=== PATIENT | female | born 2000 | race Caucasian/White ===

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

== ENCOUNTER 2020-05-06 00:43 | Emergency (ER) | payer OTHER, SELFPAY ==
[2020-05-06 00:49] VITALS: BP 152/96; PULSE 100; RESP 16; TEMP 36.6; O2SAT 95; BMI 28.3
--- NOTE | 2020-05-06 01:51 | ED_ITS ---
HPI - General Adult General Chief complaint: General Medical Stated complaint: sore throat Time Seen by Provider: 05/06/20 01:51 Source: patient Mode of arrival: ambulatory History of Present Illness HPI narrative: This is a 20-year-old female who states that she felt like her tonsils were enlarged and became concerned that they were going to close off her airway and so came into the emergency department. She denies any fevers, chills, nausea, vomiting, sore throat, or sick contacts. She denies eating or being exposed to anything that may have caused an allergic reaction. In addition, she denies any ear pain. Related Data Allergies Allergy/AdvReac Type Severity Reaction Status Date / Time No Known Allergies Allergy Verified 05/06/20 00:48 [No Known Allergies*] Review of Systems Review of Systems: Pertinent positives and negatives as stated in HPI 10 point review of systems is otherwise negative. PMFSH Past Medical History Source: nursing notes reviewed Medical History Tourettes disease Social History Social History Advance Directives: No Physical Exam Vital Signs: Vital Signs: Last Vital Signs Temp 97.9 F 05/06/20 00:49 Pulse 100 05/06/20 00:49 Resp 16 05/06/20 00:49 BP 152/96 H 05/06/20 00:49 Pulse Ox 95 05/06/20 00:49 Body Mass Index 28.3 VITAL SIGNS: Reviewed. GENERAL: Well developed, well nourished, in no acute distress. HEAD: Normocephalic/atraumatic EYES: PERRLA, EOMI EARS: Ext canals without abnormality, TMs non-bulging and non-erythematous NOSE: Nares patent bilateral OROPHARYNX: no oral lesions noted, posterior pharynx clear with noted tonsillar enlargement/erythema but no exudates NECK: Supple, no adenopathy LUNGS: Normal breath sounds. No adventitious sounds or accessory muscle use. SpO2<95> CARDIOVASCULAR: Regular rate and rhythm without noted murmurs ABDOMEN: Soft, non-tender, non-distended with bowel sounds. NEUROLOGIC: Alert and oriented x 4. Course Course Course Narrative: This is a 20-year-old female with history and clinical pre sentation consistent with viral pharyngitis as opposed to strep pharyngitis which was further corroborated by a negative rapid strep. 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 She was strongly encouraged to follow-up with her primary care provider on Thursday who could access the results of the strep culture as well as the Monospot testing. Discharge Plan Discharge Clinical Impression: Enlarged tonsils Patient Disposition: Home, Self-Care Instructions: Tonsillitis (ED) Additional Instructions: Please follow-up with your primary care provider on Thursday to pursue the results of your strep culture as well as Monospot. Referrals: Physician,Unknown [Primary Care Provider] - 2 days
[2020-05-06 03:18] LABS: Monotest Negative (Negative)
== END 2020-05-06 03:03 | disposition home or self-care (01) ==
PROVIDERS: Emergency Provider Student in an Organized Health Care Education/Training Program
DX: J35.1 Hypertrophy of tonsils (principal); J02.9 Acute pharyngitis, unspecified
CPT/HCPCS: 36415; 86308; 87071; 87147; 87880; 99283; 99284

== ENCOUNTER 2020-12-26 13:19 | Emergency (ER) | payer OTHER, SELFPAY ==
[2020-12-26 13:25] VITALS: BP 140/74; PULSE 88; RESP 18; TEMP 36.5; O2SAT 100; BMI 28.3
--- NOTE | 2020-12-26 13:57 | ECG_ITS ---
Test Reason : PALPITATIONS Blood Pressure : / mmHG Vent. Rate : 082 BPM Atrial Rate : 082 BPM P-R Int : 138 ms QRS Dur : 090 ms QT Int : 374 ms P-R-T Axes : 026 068 036 degrees QTc Int : 436 ms Normal sinus rhythm Nonspecific T wave abnormality Inferior leads Abnormal ECG When compared with ECG of 05-MAY-2019 17:24, Nonspecific T wave abnormality Inferior leads is new Referred By: Simeon Mcconnell Electronically Signed By:JONAH DURBIN MD
--- NOTE | 2020-12-26 14:01 | ED.ARRPALP ---
HPI - Arrhythmia/Palpitations General Chief Complaint: Arrhythmia/Palpitations Stated Complaint: heart palpitations Time Seen by Provider: 12/26/20 13:41 Source: patient and family (Father) Mode of arrival: ambulatory Limitations: no limitations History of Present Illness HPI narrative: 21-year-old female who presents emergency department for evaluation of palpitations. Patient states that approximately 2 weeks prior she got a Nexplanon implant. She states that the next thing she developed palpitations. She describes the palpitations as a pounding sensation in her heart beating fast. She states that the symptoms were intermittent and would last minutes. She went to [facility] and states that she had heart rate of 197. The patient was admitted to the hospital for 1 day and she states they were concerned that she may have a thyroid issue causing her palpitations. The patient was started on propanolol 20 mg 3 times a day. She states she has been taking these medications but believes that she still is experiencing palpitations. The patient lives in [place] but was visiting her grandmother here in the [place] area. She states that she had 2 episodes of palpitations lasting less than a minute. She states that she had a slight change in her vision, felt dizzy and short of breath with these palpitations. She states that at the time evaluation she has no symptoms. The patient did have the Nexplanon implant removed today. Related Data Home Medications Medication Instructions Recorded Confirmed amoxicillin 875 mg tablet 875 mg PO BID 09/20/20 cetirizine 10 mg tablet 10 mg PO DAILY 09/20/20 clonazepam 0.5 mg tablet mg PO 09/20/20 clonidine HCl 0.1 mg tablet 0.1 mg PO TID 09/20/20 fluoride (sodium) 1.1 % dental gel PO 09/20/20 (SF) haloperidol 2 mg tablet 2 mg PO BID 09/20/20 ibuprofen 600 mg tablet 600 mg PO Q6H PRN 09/20/20 medroxyprogesterone 150 mg/mL 150 mg IM [id number] 09/20/20 intramuscular suspension methylprednisolone 4 mg tablets in mg PO 09/20/20 a dose pack metronidazole 500 mg tablet 500 mg PO BID 09/20/20 sertraline 100 mg tablet 100 mg PO DAILY 09/20/20 sertraline 25 mg tablet 25 mg PO DAILY 09/20/20 sertraline 50 mg tablet 50 mg PO DAILY 09/20/20 Allergies Allergy/AdvReac Type Severity Reaction Status Date / Time metronidazole Allergy Palpitation Verified 12/26/20 13:25 s Review of Systems Review of Systems: Yes all other systems are reviewed and are negative [facility] Past Medical History [facility] Narrative: Past medical history: Tourette's. Past surgical history tonsillectomy August 2020. Social history: She denies tobacco, alcohol and drug use. Medical History Tourettes disease Social History Social History Alcohol intake: never Advance Directives: No Advance Directives Information Provided: No Patient : No Physical Exam Vital Signs: Vital Signs: Last Vital Signs Temp 99.4 F 12/26/20 15:40 Pulse 74 12/26/20 15:40 Resp 16 12/26/20 15:40 BP 134/72 12/26/20 15:40 Pulse Ox 100 12/26/20 15:40 Body Mass Index 28.3 Const: General: cooperative and no acute distress Orientation/consciousness: oriented to person and oriented to place Limitations: no limitations HENMT: Head: Yes normal to inspection, Yes normocephalic and Yes atraumatic Ears: external ears normal General nose exam: Normal external nose present Face and sinus: Yes normal facial exam Mouth: Normal oral and palatal mucosa present Throat: Yes posterior oropharynx normal Eyes: General: appearance normal, both eyes and all related structures Pupils: Equal, round and reactive pupils present Neck: Neck: Yes normal visual inspection, Yes no lymphadenopathy, Yes trachea midline and Yes supple Chest: Chest palpation & inspection: normal inspection of the chest and normal palpation of entire chest wall Resp: Effort & Inspection: normal respiratory effort and able to speak in complete sentences Auscultation: clear to auscultation bilaterally Cardio: Rate: tachycardic Rhythm: regular rhythm Heart sounds: S1 normal heart sound present, S2 normal heart sound present and no murmurs GI: Inspection: Yes normal to inspection Palpation (GI): Soft to palpation, nontender and no guarding Auscultation: normal bowel sounds : General: Yes no CVA tenderness Back/Spine/Pelvis: Back: no CVA tenderness Skin: General skin exam: no rashes or lesions noted Neuro: General: oriented to person and oriented to place Cranial nerves: Yes CN's II-XII intact bilaterally and Yes Equal, round and reactive pupils present Cognition (Neuro): normal cognition Motor exam (neuro): 5/5 motor strength present throughout Extrem: Other: Right biceps wrapped with a gauze dressing, the patient just have her control Nexplanon implant removed. This dressing was not taken down. General: Yes normal to inspection Psych: Appearance: grossly normal Speech and movement: Normal speech and movement present Affect: normal affect Attitude: cooperative Thought process: Normal thought process present Thought content: Normal thought content present Course Course Course Narrative: 21-year-old female who has been experiencing intermittent palpitations over the last 1-2 weeks, recently hospitalized at [facility] for palpitations and told that she may have a thyroid problem. She was started on propanolol 20 mg 3 times a day states that she is continuing to have intermittent palpitations. Patient had to brief palpitation episodes lasting less than a minute each while she was visiting her grandmother today in the [place] area. At the time of my evaluation, the patient has no symptoms. Vital signs revealed a pulse of 88, blood pressure 140/74 , respiratory rate 18. Patient's exam did reveal tachycardia otherwise was unremarkable. I ordered a CBC, CMP, quantitative beta-hCG, troponin, TSH with reflex T4, gambling monitor. Patient was ordered to get normal saline 1 L IV. 1608: Patient's 12 EKG revealed a sinus rhythm rate of 82. Laboratory evaluation was unremarkable except for a nondetectable TSH of less than 0.01 The patient has free T4 which was normal at 183. The patient is taking propanolol 20 mg 3 times a day. The patient is asking if we have a mba intern, therefore I will refer the patient to Dr. Terry. I told the patient that Dr. Terry is not on-call for the emergency department but she may be able to see the patient as an outpatient. MDM - Arrhythmia/Palpitations Lab Data Result diagrams: 12/26/20 14:36 12/26/20 14:36 Labs: Lab Results 12/26/20 12/26/20 12/26/20 Range/Units 14:36 14:36 14:36 WBC 6.4 (4.8-10.8) X10*3/uL RBC 4.64 (4.20-5.50) X10*6/uL Hgb 13.1 (12.0-16.0) g/dl Hct 39.4 (37.0-47.0) % MCV 84.9 (80.0-98.0) fL MCH 28.2 (27.0-33.0) pg MCHC 33.2 (31.0-35.0) g/dl RDW 12.0 (11.0-16.0) % Plt Count 287 (160-400) X10*3/uL MPV 9.2 L (9.4-12.3) fL Immature Gran % (Auto) 0.3 (0.0-0.4) % Neut % (Auto) 55.2 (45-73) % Lymph % (Auto) 30.3 (20-40) % [place] % (Auto) 11.2 H (2-11) % Eos % (Auto) 2.5 (0-4) % Baso % (Auto) 0.5 (0-2) % Lymph # (Auto) 2.0 (1.2-4.9) X10*3/uL [place] # (Auto) 0.7 (0.1-1.2) X10*3/uL Eos # (Auto) 0.2 (0.0-0.4) X10*3/uL Baso # (Auto) 0.0 (0.0-0.2) X10*3/uL Abs Immat Gran (auto) 0.02 (0.00-0.03) X10*3/uL Absolute Neuts (auto) 3.6 (2.0-8.3) x10*3/uL Absolute Nucleated RBC 0.000 (0.0-0.012) X10*3/uL Nucleated RBC % (auto) 0.0 (0.0-0.2) /100WBC Sodium 139 (135-145) mmol/L Potassium 3.9 (3.3-5.1) mmol/L Chloride 108 (96-108) mmol/L Carbon Dioxide 24 (22-29) mmol/L Anion Gap 11 L (12-20) BUN 7 L (9-16) mg/dL Creatinine 0.66 (0.5-1.4) mg/dL Estim Creat Clear Calc 139.6 Estimated GFR > 60 Random Glucose 88 (60-115) mg/dL Calcium 9.3 (8.4-10.2) mg/dL Total Bilirubin 0.4 (0.0-1.0) mg/dL AST 16 (5-31) U/L ALT 26 (0-31) U/L Alkaline Phosphatase 77 (39-117) U/L Troponin I High Sens < 3.5 (<3.5-17.0) ng/L Total Protein 6.9 (6.5-8.0) g/dL Albumin 4.2 (3.5-5.0) g/dL TSH (0.32-4.0) uIU/mL Free T4 (0.71-1.85) ng/dL Beta HCG, Quant mIU/mL 12/26/20 12/26/20 Range/Units 14:36 14:36 WBC (4.8-10.8) X10*3/uL RBC (4.20-5.50) X10*6/uL Hgb (12.0-16.0) g/dl Hct (37.0-47.0) % MCV (80.0-98.0) fL MCH (27.0-33.0) pg MCHC (31.0-35.0) g/dl RDW (11.0-16.0) % Plt Count (160-400) X10*3/uL MPV (9.4-12.3) fL Immature Gran % (Auto) (0.0-0.4) % Neut % (Auto) (45-73) % Lymph % (Auto) (20-40) % [place] % (Auto) (2-11) % Eos % (Auto) (0-4) % Baso % (Auto) (0-2) % Lymph # (Auto) (1.2-4.9) X10*3/uL [place] # (Auto) (0.1-1.2) X10*3/uL Eos # (Auto) (0.0-0.4) X10*3/uL Baso # (Auto) (0.0-0.2) X10*3/uL Abs Immat Gran (auto) (0.00-0.03) X10*3/uL Absolute Neuts (auto) (2.0-8.3) x10*3/uL Absolute Nucleated RBC (0.0-0.012) X10*3/uL Nucleated RBC % (auto) (0.0-0.2) /100WBC Sodium (135-145) mmol/L Potassium (3.3-5.1) mmol/L Chloride (96-108) mmol/L Carbon Dioxide (22-29) mmol/L Anion Gap (12-20) BUN (9-16) mg/dL Creatinine (0.5-1.4) mg/dL Estim Creat Clear Calc Estimated GFR Random Glucose (60-115) mg/dL Calcium (8.4-10.2) mg/dL Total Bilirubin (0.0-1.0) mg/dL AST (5-31) U/L ALT (0-31) U/L Alkaline Phosphatase (39-117) U/L Troponin I High Sens (<3.5-17.0) ng/L Total Protein (6.5-8.0) g/dL Albumin (3.5-5.0) g/dL TSH < 0.01 L (0.32-4.0) uIU/mL Free T4 1.83 (0.71-1.85) ng/dL Beta HCG, Quant < 2 mIU/mL ECG Data Attestation: I personally reviewed and interpreted this ECG as follows: Interpretation: 1427: Normal sinus rhythm with a rate of 82, normal NC interval, QRS duration and QTC intervals, inverted T-wave in lead 3, no ST segment elevation no ST segment depression, poor R-wave progression V1 through V3 which may be secondary to lead placement. Discharge Plan Discharge Clinical Impression: Palpitations, Hyperthyroidism Patient Disposition: Home, Self-Care Instructions: Hyperthyroidism (ED) Additional Instructions: Your TSH (thyroid stimulating hormone) was less than 0.01 (ranges 0.32 to 4.0). This suggests that you have an overactive thyroid (hyperthyroidism). Your free T4 (thyroid hormone) was normal at 1.83 (range 0.7 to 1.85). Your symptoms are consistent with an overactive thyroid and this can sometimes be caused by your immune system attacking your thyroid and stimulating the thyroid. The treatment at this point is to continue taking propanolol 20 mg 3 times a day. You will need to see an mba intern to determine what further treatment and diagnostic tests that you may need for your hyperthyroidism. Keep your appointment with the [facility] mba intern. You can call our local mba intern, Dr. Terry to see if she can see you sooner. Follow-up with your doctor in 2 days. Please return to the emergency department if your symptoms get worse or if you develop any symptoms that are concerning to you. Prescriptions: No Action medroxyprogesterone 150 mg/mL suspension 150 mg IM [id number] RF: 0 metronidazole 500 mg tablet 500 mg PO BID RF: 0 sertraline 100 mg tablet 100 mg PO DAILY RF: 0 sertraline 50 mg tablet 50 mg PO DAILY RF: 0 haloperidol 2 mg tablet 2 mg PO BID RF: 0 methylprednisolone 4 mg tablets,dose pack PO RF: 0 sertraline 25 mg tablet 25 mg PO DAILY RF: 0 cetirizine 10 mg tablet 10 mg PO DAILY RF: 0 ibuprofen 600 mg tablet 600 mg PO Q6H PRN (Reason: pain) RF: 0 amoxicillin 875 mg tablet 875 mg PO BID RF: 0 clonazepam 0.5 mg tablet PO RF: 0 fluoride (sodium) [SF] 1.1 % gel PO RF: 0 clonidine HCl 0.1 mg tablet 0.1 mg PO TID RF: 0 Referrals: Shanna Pan DO [Physician] - 2 weeks
[2020-12-26 14:30] VITALS: BP 124/81; PULSE 82; RESP 20; O2SAT 100
[2020-12-26] MEDS: 0.9 % Sodium Chloride 1,000 ML 999 ML IV (14:40)
[2020-12-26 14:44] LABS: MANUAL DIFF FLAG NO
[2020-12-26 14:46] LABS: Basophils Percent Auto 0.5 % (0-2); Eosinophils Absolute Auto 0.2 X10*3/uL (0.0-0.4); Eosinophils Percent Auto 2.5 % (0-4); Hematocrit 39.4 % (37.0-47.0); Hemoglobin 13.1 g/dl (12.0-16.0); Imm Gran Abs Auto 0.02 X10*3/uL (0.00-0.03); Imm Gran Pct Auto 0.3 % (0.0-0.4); Lymphocytes Percent Auto 30.3 % (20-40); Mean Corpuscular HGB Conc 33.2 g/dl (31.0-35.0); Mean Corpuscular Hemoglobin 28.2 pg (27.0-33.0); Mean Corpuscular Volume 84.9 fL (80.0-98.0); Mean Platelet Volume 9.2 fL (9.4-12.3); Monocytes Absolute Auto 0.7 X10*3/uL (0.1-1.2); Monocytes Percent Auto 11.2 % (2-11); Neutrophils Absolute Auto 3.6 x10*3/uL (2.0-8.3); Neutrophils Percent Auto 55.2 % (45-73); Platelet Count 287 X10*3/uL (160-400); Red Blood Count 4.64 X10*6/uL (4.20-5.50); White Blood Count 6.4 X10*3/uL (4.8-10.8)
[2020-12-26 15:01] LABS: Alanine Aminotransferase 26 U/L (0-31); Albumin Level 4.2 g/dL (3.5-5.0); Alkaline Phosphatase 77 U/L (39-117); Anion Gap 11 (12-20); Aspartate Amino Transferase 16 U/L (5-31); Bilirubin Total 0.4 mg/dL (0.0-1.0); Blood Urea Nitrogen 7 mg/dL (9-16); Calcium 9.3 mg/dL (8.4-10.2); Carbon Dioxide 24 mmol/L (22-29); Chloride 108 mmol/L (96-108); Creatinine Clr Calc Pharmacy 139.6; Estimated Glomerular Filt Rate > 60; Glucose Random 88 mg/dL (60-115); Potassium 3.9 mmol/L (3.3-5.1); Sodium 139 mmol/L (135-145); Total Protein 6.9 g/dL (6.5-8.0)
[2020-12-26 15:05] LABS: Troponin-I High Sensitivity < 3.5 ng/L (<3.5-17.0)
[2020-12-26 15:08] LABS: HCG Quantitative < 2 mIU/mL
[2020-12-26 15:20] LABS: TSH reflex Free T4 < 0.01 uIU/mL (0.32-4.0)
[2020-12-26 15:40] VITALS: BP 134/72; PULSE 74; RESP 16; TEMP 37.4; O2SAT 100
[2020-12-26 15:57] LABS: Free T4 (Free Thyroxine) 1.83 ng/dL (0.71-1.85)
== END 2020-12-26 16:35 | disposition home or self-care (01) ==
PROVIDERS: Emergency Provider Emergency Medicine Emergency Medical Services; PCP Internal Medicine
DX: R00.2 Palpitations (principal); E05.90 Thyrotoxicosis, unspecified without thyrotoxic crisis or storm; Z79.899 Other long term (current) drug therapy
CPT/HCPCS: 36415; 80053; 84439; 84443; 84484; 84702; 85025; 93005; 96360; 99283; 99284

== ENCOUNTER 2024-03-21 18:52 | Emergency (ER) | payer BC, SELFPAY ==
--- NOTE | ~2024-03-21 | XR_ITS ---
CLINICAL HISTORY: pain 2 view chest x-ray Comparison: None Findings: No consolidation or effusion. Normal size heart. No acute fracture. IMPRESSION: 1. No acute findings. This document has been electronically signed by: Buddy Masterson MD on 03/21/2024 21:13:02
--- NOTE | 2024-03-21 19:34 | ED_ITS ---
HPI - General Adult General Chief complaint: Upper Respiratory Symptoms Stated complaint: sick x2wks; chest tight Time Seen by Provider: 03/22/24 01:56 Source: patient Mode of arrival: ambulatory Limitations: no limitations History of Present Illness ED Provider: HPI narrative: Patient otherwise healthy complaining of cough congestion for last 2 weeks especially in the nighttime with mucopurulent phlegm no fever no chills has a running nose patient has had labs done prior to my evaluation which showed negative COVID flu and RSV chest x-ray negative Related Data Home Medications ?Medication ?Instructions ?Recorded ?Confirmed amoxicillin 875 mg tablet 875 mg PO BID 09/20/20 cetirizine 10 mg tablet 10 mg PO DAILY 09/20/20 clonazepam 0.5 mg tablet mg PO 09/20/20 clonidine HCl 0.1 mg tablet 0.1 mg PO TID 09/20/20 fluoride (sodium) 1.1 % dental gel PO 09/20/20 (SF) haloperidol 2 mg tablet 2 mg PO BID 09/20/20 ibuprofen 600 mg tablet 600 mg PO Q6H PRN pain 09/20/20 medroxyprogesterone 150 mg/mL 150 mg IM [id number] 09/20/20 intramuscular suspension methylprednisolone 4 mg tablets in mg PO 09/20/20 a dose pack metronidazole 500 mg tablet 500 mg PO BID 09/20/20 sertraline 100 mg tablet 100 mg PO DAILY 09/20/20 sertraline 25 mg tablet 25 mg PO DAILY 09/20/20 sertraline 50 mg tablet 50 mg PO DAILY 09/20/20 Previous Rx's ?Medication ?Instructions ?Recorded azithromycin 250 mg tablet 250 mg PO DAILY 4 days #4 tabs 03/22/24 (Zithromax) benzonatate 200 mg capsule 200 mg PO TID PRN cough #30 caps 03/22/24 doxycycline hyclate 100 mg tablet 100 mg PO BID #20 tabs 03/22/24 Allergies Allergy/AdvReac Type Severity Reaction Status Date / Time metronidazole Allergy Palpitation Verified 03/21/24 19:38 s Review of Systems 2 Review of Systems: Yes all other systems are reviewed and are negative PMFSH Past Medical History Medical History Tourettes disease Social History Social History Alcohol intake: never Advance Directives: No Advance Directives Information Provided: Yes Do you have a plan to hurt others: No Plan Physical Exam ED Vital Signs: Vital Signs - 24 hr 03/21/24 19:37 Temperature 98.7 F Pulse Rate 103 H Respiratory Rate 20 Blood Pressure 137/75 Pulse Oximetry 97 Oxygen Delivery Method Room Air BMI result Body Mass Index 32.0 Appearance: Alert. Oriented X3. No acute distress. ENT: Pharynx normal. Oral Mucosa moist clear discharge from the nose Neck: Normal inspection. Neck supple. CVS: Normal heart rate and rhythm. Pulses normal. Respiratory: No respiratory distress. Equal air entry bilateral, no wheezing/rales/rhonchi frequent cough Skin: Skin warm and dry. Normal skin color. Normal skin turgor. Extremities: No lower extremity edema. Neuro: Oriented X 3. Course Course Course Narrative: RME, this is a rapid medical exam performed by Ed Santos please refer to primary provider for complete H&P- 24-year-old female presents for evaluation of cough, congestion, nausea and vomiting. Symptoms started 5 days ago. She also complains of chest tightness. Plan for labs, viral testing and a chest x-ray. Medications Administered Discontinued Medications Generic Name Dose Route Start Last Admin Trade Name Freq PRN Reason Stop Dose Admin Azithromycin 500 mg 03/22/24 02:12 03/22/24 02:20 Azithromycin 500 Mg Tablet PO 03/22/24 02:13 500 mg ONCE ONE Administration Benzonatate 200 mg 03/22/24 02:15 03/22/24 02:21 Benzonatate 100 Mg Capsule PO 03/22/24 02:16 200 mg ONCE ONE Administration Doxycycline Monohydrate 100 mg 03/22/24 02:12 03/22/24 02:20 Doxycycline Monohydrate 100 Mg Capsule PO 03/22/24 02:13 100 mg ONCE ONE Administration Medical Decision Making Medical Decision Making [facility] Narrative: Patient with bronchitis COVID flu RSV negative chest x-ray negative will prescribe antibiotics Lab Data [facility] Lab Attestation statement: I reviewed the patient's lab results. 03/21/24 22:13 03/21/24 22:13 Labs: Lab Results 03/21/24 03/21/24 Range/Units 22:13 22:14 WBC 13.5 H (4.8-10.8) X10*3/uL RBC 4.59 (4.20-5.50) X10*6/uL Hgb 13.1 (12.0-16.0) g/dl Hct 39.3 (37.0-47.0) % MCV 85.6 (80.0-98.0) fL MCH 28.5 (27.0-33.0) pg MCHC 33.3 (31.0-35.0) g/dl RDW 12.5 (11.0-16.0) % Plt Count 352 (160-400) X10*3/uL MPV 9.3 L (9.4-12.3) fL Immature Gran % (Auto) 0.4 (0.0-0.4) % Neut % (Auto) 67.6 (45-73) % Lymph % (Auto) 21.6 (20-40) % [place] % (Auto) 8.7 (2-11) % Eos % (Auto) 1.3 (0-4) % Baso % (Auto) 0.4 (0-2) % Lymph # (Auto) 2.9 (1.2-4.9) X10*3/uL [place] # (Auto) 1.2 (0.1-1.2) X10*3/uL Eos # (Auto) 0.2 (0.0-0.4) X10*3/uL Baso # (Auto) 0.1 (0.0-0.2) X10*3/uL Abs Immat Gran (auto) 0.06 H (0.00-0.03) X10*3/uL Absolute Neuts (auto) 9.1 H (2.0-8.3) x10*3/uL Absolute Nucleated RBC 0.000 (0.0-0.012) X10*3/uL Nucleated RBC % (auto) 0.0 (0.0-0.2) /100WBC Sodium 139 (135-145) mmol/L Potassium 4.1 (3.3-5.1) mmol/L Chloride 107 (96-108) mmol/L Carbon Dioxide 24 (22-29) mmol/L Anion Gap 12 (12-20) BUN 8 L (9-16) mg/dL Creatinine 0.68 (0.5-1.4) mg/dL Estim Creat Clear Calc 139.1 Estimated GFR > 60 Random Glucose 82 (60-115) mg/dL Calcium 9.2 (8.4-10.2) mg/dL Total Bilirubin 0.2 (0.0-1.0) mg/dL AST 25 (5-31) U/L ALT 39 H (0-31) U/L Alkaline Phosphatase 73 (39-117) U/L Total Protein 8.3 H (6.5-8.0) g/dL Albumin 4.5 (3.5-5.0) g/dL Lipase 17 (8-78) U/L Beta HCG, Quant < 2 mIU/mL Influenza Type A (PCR) NEGATIVE (Negative) Influenza Type B (PCR) NEGATIVE (Negative) RSV RNA Qual (PCR) NEGATIVE (Negative) SARS-CoV-2 RNA (RT-PCR) NEGATIVE (Negative) S. pyogenes GrpA SHRUTHI Negative (Negative) Radiology Impression Discussion of test interpretation with radiology: I have reviewed the radiologist's reading. Radiologist Impression: NAD Discharge Plan Discharge Clinical Impression: Bronchitis Patient Disposition: Home, Self-Care Instructions: Acute Bronchitis (ED) Additional Instructions: Drink plenty of fluid Your COVID flu strep negative Chest x-ray also negative You have bronchitis take antibiotic as prescribed Follow with your PCP if not better Prescriptions: New doxycycline hyclate 100 mg tablet 100 mg PO BID Qty: 20 0RF azithromycin [Zithromax] 250 mg tablet 250 mg PO DAILY 4 Days Qty: 4 0RF Rx Instructions: start on day 2 of therapy benzonatate 200 mg capsule 200 mg PO TID PRN (Reason: cough) Qty: 30 0RF No Action medroxyprogesterone 150 mg/mL suspension 150 mg IM [id number] metronidazole 500 mg tablet 500 mg PO BID sertraline 100 mg tablet 100 mg PO DAILY sertraline 50 mg tablet 50 mg PO DAILY haloperidol 2 mg tablet 2 mg PO BID methylprednisolone 4 mg tablets,dose pack PO sertraline 25 mg tablet 25 mg PO DAILY cetirizine 10 mg tablet 10 mg PO DAILY ibuprofen 600 mg tablet 600 mg PO Q6H PRN (Reason: pain) amoxicillin 875 mg tablet 875 mg PO BID clonazepam 0.5 mg tablet PO fluoride (sodium) [SF] 1.1 % gel PO clonidine HCl 0.1 mg tablet 0.1 mg PO TID Print Language: Georgian
[2024-03-21 19:37] VITALS: BP 137/75; PULSE 103; RESP 20; TEMP 37.1; O2SAT 97; BMI 32.0
--- OUTSIDE RECORDS SUMMARY | 2024-03-21 22:22 | XMS_ITS | Clinical Summary ---
Author Organization [facility] Address [address] [place] [address] Phone Care Team Providers Care Clothing Supervisor Name Role Phone Cameron Junior MD Primary Care Provider [phone] Allergies Active Allergy Reactions Criticality Noted Date Comments Metronidazole Palpitations High 10/25/2020 Prednisone Flushing,Itching,Rash 06/11/2021 After 2 days Medications Vitamin D3 50 mcg (2,000 unit) tablet TAKE 1 TABLET BY MOUTH EVERY DAY 90 tablet 3 4 Active cyanocobalamin (VITAMIN B-12) 1,000 mcg tablet Take 1 Tablet by mouth daily. 2 Active albuterol sulfate (ProAir RespiClick) 90 mcg/actuation aerosol powdr breath activated Inhale 2 Puffs into the lungs every 4 hours as needed (wheezing, shortness of breath). 2 Active metoprolol tartrate (LOPRESSOR) 25 mg tablet Take 25 mg by mouth 2 times daily. Prn per [facility] stitcher dr Flores Active fluticasone (VERAMYST) 27.5 mcg/actuation nasal spray Administer into affected nostril(s). 2 Active hydrOXYzine HCL (ATARAX) 25 mg tablet Take 1 tablet (25 mg total) by mouth. 2 Active norethindrone-e thinyl estradiol (JUNEL FE 02/28) 1 mg-20 mcg (21)/75 mg (7) per tablet Take 1 tablet by mouth 1 (one) time each day. 28 tablet 11 5 02/16/19 26 Active Active Problems Problem Noted Date Diagnosed Date Vitamin D deficiency 09/17/2023 Class 1 obesity 05/23/2021 PSVT (paroxysmal supraventricular tachycardia) 0 04/11/2021 Overview (12/31/2023): Last Assessment & Plan: Aliya Had symptomatic, paroxysmal supraventricular tachycardia in the context of a hyperthyroid state. Her EKG at baseline is normal and her echocardiogram is unremarkable. The most likely possibility is that the SVT was triggered by hyperthyroid state and that with normalization of her thyroid hormone levels the SVT is unlikely to recur. I suggested that instead of daily metoprolol due to side effects with this medication she can change to a pill in the pocket or as needed approach. If she has sustained run of rapid heart rate not responsive to conservative maneuvers that she is well versed in, she will take 25 mg of metoprolol once and if this persists for another 15 minutes a second dose of metoprolol. If she has more frequent or severe episodes of SVT with this strategy then we could consider antiarrhythmic therapy or referral to consider an ablation procedure. At this time her symptoms have had a clear correlation with thyroid hormone levels and have not advanced in the past few months on beta-rosalio therapy and I do not think that a more aggressive approach is warranted. 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 I have not scheduled a routine clinical follow-up at this time and I am happy to see her on as-needed basis. Hyperthyroidism 01/24/2021 Tonsillar hypertrophy 07/18/2020 Overview (12/31/2023): Dr Garcia Anxiety 12/22/2019 Tourette syndrome 10/28/2019 Overview (12/31/2023): Per neuro 11/2019 Encounters Date Type Department Care Team Description 02/18/2024 10:30 AM EST Office Visit Obstetrics & Gynecology - [address] [phone] Vianca Patton CNM Encounter for well woman exam with routine gynecological exam (Primary Dx); Encounter for initial prescription of contraceptives, unspecified contraceptive; Screening breast examination; Screening for malignant neoplasm of cervix; Vaginal odor; Screen for STD (sexually transmitted disease) from Last 3 Months Immunizations Name Administration Dates Next Due DTaP (Infanrix) 6wks to less than 7yo ,03/01/2002,2000,07/14,2000 UBnF-JSC-GBF (Pentacel) 2mo to less than 5yo 06/30/2001,2000,2000,03/23 HPV 9-valent (Gardisil) 9yo to less than 46yo 06/30/2016 HPV, Quadrivalent 12/01/2013 Hepatitis A Adult (Havrix; V aqta) 19yo and older 12/01/2013 Hepatitis A Pediatric (Havri x; Vaqta) 12mo to less than 19yo 06/30/2016 Hepatitis B (Oncyhfd-U-Utrao , Recombivax HB-Adult) 19yo and older 08/30/2021 Hepatitis B Pediatric (Enger ix B; Recombivax HB) to less than 20 yo 2000,2000,2000 IPV Inactivated polio (Ipol) 6wks and older 04/04/2005,2000,2000,03/23 Influenza Quadravalent, MDCK , 0.5ml, preservative free (Flucelvax) 6mo and older 12/16/2021,04/25/2020 Influenza trivalent, 0.5mL, preservative free (Fluarix; FluLaval; Fluzone) ages 6mo and older (Afluria) 3 years and older 12/21/2020,12/26/2017,11/11/2013 Influenza, Unspecified 12/23/2020 MMR, measles mumps and rubel la Live (Priorix; M-M-R II) 12mo and older 04/04/2005,03/31/2001 Measles 08/23/2021 Meningococcal MCV4P 06/30/2016,03/24/2011 Pneumococcal Conjugate Vacci ne, 7 Valent 03/23/2003,2000,2000,03/23 Tb Skin Test 08/23/2021 Tdap Tetanus diptheria acell ular pertussis (Boostrix; Adacel) 7yo and older 08/30/2021,03/24/2011 Varicella live (Varivax) 12m o and older 08/30/2021,06/26/2008,06/30/2001 Surgical History Surgery Date Site/Laterality Comments OTHER SURGICAL HISTORY PROCEDURE: ID UNLISTED PROCEDURE VESTIBULE MOUTH TONSILLECTOMY 08/01/2020 Bilateral PROCEDURE: HISTORICAL TONSILLECTOMY; COMMENT: Dr. Garcia Medical History Medical History Date Comments Tonsillar hypertrophy 07/18/2020 DX:Tonsill ar hypertrophy; COMMENT: Dr Garcia Mild intermittent asthma, uncomplicated DX:Mild intermittent asthma, uncomplicated; COMMENT: as a chid Family History Medical History Relation Name Comments No Known Problems Brother x 8 No Known Problems Father Hypothyroidism Mother Breast cancer Neg Hx Ovarian cancer Neg Hx Relation Name Status Comments Brother x 8 Alive Father Alive Mother Alive Social History Tobacco Use Types Packs/Day Years Used Date Smoking Tobacco: Never Smokeless Tobacco: Never Tobacco Cessation:Counseling Given: Not Answered Alcohol Use Standard Drinks/Week Comments No 0 (1 standard drink = 0.6 oz pur e alcohol) Comments No Sex and Gender Information Value Date Recorded Sex Assigned at Not on file Legal Sex Female 10:04 AM EST Gender Identity Not on file Sexual Orientation Not on file 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 Not on file Not on file Obstetrics History Para Term AB IAB SAB Ectopic Multiple Livin g Live Births 0 0 0 0 0 0 0 0 0 0 0 Last Filed Vital Signs Vital Sign Reading Time Taken Comments Blood Pressure 114/72 02/18/2024 10:28 AM EST Pulse 99 02/18/2024 10:28 AM EST Temperature - - Respiratory Rate - - Oxygen Saturation - - Inhaled Oxygen Concentration - - Weight 88 kg (194 lb) 02/18/2024 10:28 AM EST Height 165.1 cm (5' 5 ) 02/18/2024 10:28 AM EST Body Mass Index 32.28 02/18/2024 10:28 AM EST Plan of Treatment Upcoming Encounters Date Type Department Care Team (Late st Contact Info) Description 04/29/2024 11:30 AM EDT Office Visit Internal Medicine - [address] [place] [id number] Cameron Junior MD [address] [facility] [address] [place] [address] 06/17/2024 9:30 AM EDT Office Visit Obstetrics & Gynecology - [facility] [address] [place] [phone] Abdi Vianca, CNM [address] [place] [address] Health Maintenance Due Date Last Done Comments Depression Screening 01/18/2022 HIV Screening 01/18/2022 Social Influencers of Health Screening 01/18/2022 COVID-19 Vaccine ( season) 2023 05/20/2020 Gonorrhea/Chlamydia Screening 02/17/2025 02/18/2024 Cervical Cancer Screening: Pap Smear 02/17/2027 02/18/2024 Cholesterol Screening (Lipid Panel) 09/16/2028 09/17/2023, 09/17/2023 DTaP,Tdap,and Td Vaccines (8 - Td or Tdap) 08/31/2031 08/30/2021, 03/24/2011, 04/04/2005, Additional history exists HIB Vaccines Completed 06/30/2001, 08/10, 2000, Additional history exists Pneumococcal Vaccine: Pediatrics (0 to 5 Years) and At-Risk Patients (6 to 64 Years) Completed 03/23/2003, 2000, 2000, Additional history exists IPV Vaccines Completed 04/04/2005, 06/10, 2000, Additional history exists MMR Vaccines Completed 04/04/2005, 03/31/2001 HPV Vaccines Completed 06/30/2016, 12/01/2013 Hepatitis A Vaccines Completed 06/30/2016, 12/02/19 14 Meningococcal ACWY Vaccine Completed 06/30/2016, Hepatitis B Vaccines Completed 08/30/2021, 2000, 2000, Additional history exists Varicella Vaccines Completed 08/30/2021, 0 06/26/2008, 06/30/2001 Hepatitis C Screening Completed 09/17/2023 Influenza Vaccine Completed 11/06/2023, , 12/23/2020, Additional history exists Meningococcal B Vacine Aged Out No lo nger eligible based on patient's age to complete this topic RSV Immunization Patients Under 20 months Aged Out No longer eligible based on patient's age to complete this topic Procedures Procedure Name Priority Date/Time Associated Diagnosis Comments PAP SMEAR Routine 02/18/2024 10:54 AM EST Encounter for well woman exam with routine gynecological exam Screening for malignant neoplasm of cervix TRICHOMONAS VAGINALIS ANTIGEN Routine 02/18/2024 10:54 AM EST Encounter for well woman exam with routine gynecological exam Vaginal odor Screen for STD (sexually transmitted disease) WET PREP, GENITAL Routine 02/18/2024 10: 54 AM EST Encounter for well woman exam with routine gynecological exam Vaginal odor Screen for STD (sexually transmitted disease) CHLAMYDIA TRACHOMATIS AND NEISSERIA GONORRHOEAE PCR Routine 02/18/2024 10:54 AM EST Encounter for well woman exam with routine gynecological exam Screen for STD (sexually transmitted disease) POC , URINE DIAGNOSTIC Routine 02/18/2024 10:32 AM EST Encounter for initial prescription of contraceptives, unspecified contraceptive HM HEPATITIS C SCREENING Routine 09/17/2023 LIPID PANEL Routine 09/17/2023 from Last 3 Months or Most Recently Relevant to Health Maintenance Results * Trichomonas vaginalis antigen (02/18/2024 10:54 AM EST) Trichomonas vaginalis Negative Negative 02/18/2024 5:49 PM EST [facility] Swab Vaginal structure / Unknown Non-blood Collection / Unknown 02/18/2024 10:54 AM EST 02/18/2024 4:03 PM EST Vianca Patton CNM LAB MICROBIOLOGY - GENERAL OR DERABLES Final Result Performing Organization Address City/[facility]/ZIP Co de Phone Number [facility] [address] [place] [address], * Chlamydia trachomatis and Neisseria gonorrhoeae molecular study (02/18/2024 10:54 AM EST) Neisseria gonorrhoeae PCR Negative Negative LAB MOLECULAR DIAGNOSTICS METHOD 02/19/2024 11:38 AM EST [facility] Chlamydia trachomatis PCR Negative Negative LAB MOLECULAR DIAGNOSTICS METHOD 02/19/2024 11:38 AM EST [facility] Swab Cervix uteri structure / Unknown Non-blood Collection / Unknown 02/18/2024 10:54 AM EST 02/18/2024 4:03 PM EST Vianca Patton [facility] MICROBIOLOGY - GENERAL OR DERABLES Final Result Performing Organization Address [facility]/ZIP Co de Phone Number [facility] [address] [place] [address], [place] [phone] * Wet prep, genital (02/18/2024 10:54 AM EST) Pathologist [facility] Clue Cells, Wet Prep Negative Negative 02/18/2024 5:41 PM EST [facility] Yeast, Wet Prep Negative Negative 02/18/2024 5:41 PM EST [facility] Trichomonas, Wet Prep Indeterminate Negative 02/18/2024 5:41 PM EST [facility] Comment:Refer to Trichomonas antigen. Swab Vaginal structure / Unknown Non-blood Collection / Unknown 02/18/2024 10:54 AM EST 02/18/2024 4:03 PM EST us Vianca ORTEGA LAB MICROBIOLOGY - GENERAL OR DERABLES Final Result Performing Organization Address City/[facility]/ZIP Co de Phone Number [facility] [address] [place] [address], * Pap smear (02/18/2024 10:54 AM EST) Interpretation Negative for intraepithelial lesion or malignancy 02/23/2024 8:22 AM [facility] General Categorization Negative 02/23/2024 8:22 AM [facility] LMP 02/04/2024 02/23/2024 8:22 AM [facility] Specimen Adequacy Satisfactory for evaluation, endocervical/myers sformation zone component absent 02/23/2024 8:22 AM [facility] Pap Methodology Liquid Based Pap Test 02/23/2024 8:22 AM [facility] Disclaimer The Pap test is a screening test which carries an inherent false negative rate. These test results should be correlated with the patient's clinical findings and history. This Pap test was processed using an automated screening system. Technical cytopathology services provided by [facility], at [address] [place] [address] (CLIA # [id number]/Sushila Mendoza MD, Mineral Surveying Technician.) 02/23/2024 8:22 AM [facility] Console Pap Interpretation Reported 02/23/2024 8:22 AM [facility] Brushing/Spatula Cervix uteri structure / Unknown 02/18/2024 10:54 AM EST 02/19/2024 6:49 AM EST Vianca [facility] LAB CYTOLOGY ORDERABLES Final Result [facility] [address] [place] [address], * POC , urine manually resulted (02/18/2024 10:32 AM EST) HCG, Ur POC Negative Negative POC hCG Int QC Pass? Yes Yes EXPIRATION DATE POC 01/05/2025 LOT NUMBER POC [id number] Urine Urine specimen obtained by clean catch procedure / Unknown 02/18/2024 10:32 AM EST Vianca Patton CNM POINT OF CARE TEST ENTER/EDIT ORDERABLES Final Result * Hepatitis C Screening (09/17/2023) Pathologist [facility] Hepatitis C Screening abstracted Historical Provider HEALTH MAINTENANCE Final Result * (ABNORMAL) Lipid panel (09/17/2023) Pathologist [facility] LDL/HDL Ratio 3 0 - 4 Triglycerides 48 0 - 150 mg/dL Cholesterol 179 0 - 200 mg/dL HDL 53 >=40 mg/dL LDL Cholesterol 117(A) 0 - 100 mg/dL Blood Venous blood specimen / Unknown Historical Provider LAB BLOOD ORDERABLES Kalli l Result from Last 3 Months or Most Recently Relevant to Health Maintenance Insurance [employer] Care Teams Clothing Supervisor Relationship Specialty Start Date End Date Cameron Junior MD [address] [facility] [address] [place] [address] PCP - General 06/22/23
--- OUTSIDE RECORDS SUMMARY | 2024-03-21 22:22 | XMS_ITS | Clinical Summary ---
Author Organization [facility] [employer] [facility] Address [address] [place] [address] Care Team Providers Care Pre Coder Name Role Phone No, Pcp MANAGER UNION Primary Care Provider Unavailabl e Social History Tobacco Use Types Packs/Day Years Used Date Smoking Tobacco: Never Assessed Comments Unknown Sex and Gender Information Value Date Recorded Sex Assigned at Not on file Legal Sex Female 4:32 PM EST Gender Identity Not on file Sexual Orientation Not on file Plan of Treatment Health Maintenance Due Date Last Done Comments Depression: Screening Annual ly using PHQ-2/9 in Adults 18 yrs or above (or HM Modifier)([facility]) 01/09/2018 Hepatitis C Virus Infection in Adolescents and Adults: Screening (or Modifier) ([facility]) 01/09/2018 SDOH Screening Reminder: Kylie radha for all adults ([facility]) 01/09/2018 Tobacco Smoking Cessation: i n Adults excluding Women: Behavioral and Pharmacotherapy Interventions ([facility]) 01/09/2018 DTaP/Tdap/Td Vaccines ([facility]) (1 - Tdap) 01/09/2019 Lipid Screening: Once for Wo men aged 20 to 45 yrs ([facility]) 2020 Cervical Cancer Screenin 1-65 yrs of age (or Modifier) 01/09/2021 Cervical Cancer Screening: P ap every 3 yrs pts age 21-65 01/09/2021 Cervical Cancer: Pap Screeni ng with Modifier timing ([facility]) 01/09/2021 Cervical Cancer: hrHPV alone or with cotesting Pap for Pts 30-65yrs screening every 5yrs ([facility]) 01/09/2021 Flu Vaccination: Yearly for ages 18mos through 64 years (or Modifier)([facility]) 09/10/2023 COVID-19 Vaccine Screening: Initial Series and Booster Status ([facility]) (2023-25 season) 2023 Zoster/Shingles Vaccine Seri es Screening: Adults aged 18+ yrs (or HM Modifiers)([facility]) (1 of 2) 01/09/2050 Pneumococcal Vaccination Scr eening: Pts 0-19 & 19-64 yrs of age ([facility]) Aged Out No longer eligible based on patient's age to complete this topic Medical Devices Not on file Insurance [facility] [employer] Care Teams Pre Coder Relationship Specialty Start Date End Date No, Pcp, MANAGER UNION N/A Do not use PCP - General Family Medicine 02/20/20
--- OUTSIDE RECORDS SUMMARY | 2024-03-21 22:22 | XMS_ITS | Clinical Summary ---
Author Organization [facility] Address [phone] [facility] [place] [address] Care Team Providers Care Hospice Volunteer Coordinator Name Role Phone Bassem Iniguez MD Primary Care Provider Allergies Active Allergy Reactions Criticality Noted Date Comments Metronidazole Palpitations Medium 10/25/2020 Medications Medication Sig Dispensed Refills Start Date End Date Status propranoloL (INDERAL) 20 MG immediate release tablet Take 20 mg by mouth 2 (two) times a day. 0.5 tab QAM .25 QPM Active Active Problems Problem Noted Date Diagnosed Date Tachycardia 03/25/2021 Family History Medical History Relation Comments Hyperthyroidism Maternal Grandfather Breast cancer Mother Hyperthyroidism Mother Relation Status Comments Maternal Grandfather Mother Social History Tobacco Use Types Packs/Day Years Used Date Smoking Tobacco: Never Smokeless Tobacco: Never Alcohol Use Standard Drinks/Week Comments Never 0 (1 standard drink = 0.6 oz pur e alcohol) Education Answer Date Recorded Are you interested in more education? Not on brinda e 06/07/2022 Are you concerned about learning? Not on file 06/07/2022 No 06/07/2022 No 06/07/2022 Digital Access Answer Date Recorded No 07/06/2022 No 07/06/2022 No 07/06/2022 Reliable internet access at home? Not on file 07/06/2022 Device with a working camera? Not on file Sex and Gender Information Value Date Recorded Sex Assigned at Not on file Gender Identity Not on file Sexual Orientation Not on file Last Filed Vital Signs Vital Sign Reading Time Taken Comments Blood Pressure 124/80 03/25/2021 3:34 PM EST Pulse 96 03/25/2021 3:34 PM EST Temperature - - Respiratory Rate - - Oxygen Saturation 100% 03/25/2021 3:34 PM EST Inhaled Oxygen Concentration - - Weight 82.6 kg (182 lb) 03/25/2021 3:34 PM EST Height 165.1 cm (5' 5 ) 03/25/2021 3:34 PM EST Body Mass Index 30.29 03/25/2021 3:34 PM EST Plan of Treatment Health Maintenance Due Date Last Done Comments Adult Td,Tdap Booster 2000 DEPRESSION SCREENING 2012 SMOKING Hx and SMOKELESS TOBACCO SCREENING 01/09/2013 CHLAMYDIA SCREENING 2016 HPV VACCINES (2 - 3-dose series) 07/28/2016 06/30/2016 HEPATITIS A VACCINES (2 of 2 - 2-dose series) 12/31/2016 06/30/2016 HEPATITIS B SCREENING 01/09/2018 HEPATITIS C SCREENING 01/09/2018 HIV ONE-TIME SCREENING (18-6 5 YEARS) 01/09/2018 HEPATITIS B VACCINES (1 of 3 - 19+ 3-dose series) 01/09/2019 PAP SMEAR 01/09/2021 INFLUENZA VACCINE (#1) 2023 , 04/25/2020, 12/26/2017 COVID-19 VACCINE (2 - 2023-2 5 season) 2023 05/20/2020 MENINGOCOCCAL VACCINES (ACWY) Completed 06/30/2016 HIB VACCINES Aged Out No longer eligi ble based on patient's age to complete this topic PNEUMOCOCCAL VACCINES (0-49 years) Aged Out No longer eligible b ased on patient's age to complete this topic Medical Devices Not on file Charlee Clintona Personal/Famil y Self 2000 [address] [facility] [address] [place] [address] [place] Aliya Personal/Famil y Self 2000 [address] [facility] [address] [place], Aliya Personal/Famil y Self [address] [facility] [address] [place], Aliya Personal/Famil y Self [address] [facility] [address] [place], Aliya Personal/Famil y Self [address] [facility] [address] [place], Aliya Personal/Famil y Self [phone] (Home) [address] [facility] [address] [place], Aliya Personal/Famil y Self [address] [facility] [address] [place], Aliya Personal/Famil y Self 2000 [address] [facility] [address] [place] Care Teams Hospice Volunteer Coordinator Relationship Specialty Start Date End Date Bassem Iniguez MD PCP - General Family Medicine 03/25/21 Additional Source Comments The information contained in this document represents components of the legal health record. It is not the complete legal health record.[facility]
--- OUTSIDE RECORDS SUMMARY | 2024-03-21 22:22 | XMS_ITS | Clinical Summary ---
Author Organization [facility] Address [address] [place] [address] Care Team Providers Care Crew Supervisor Name Role Phone Pcp, No Primary Care Provider Unavailabl e Social History Tobacco Use Types Packs/Day Years Used Date Smoking Tobacco: Never Assessed Sex and Gender Information Value Date Recorded Sex Assigned at Not on file Gender Identity Not on file Sexual Orientation Not on file Plan of Treatment Health Maintenance Due Date Last Done Comments Hepatitis C Virus Screening 2000 HIV Screening 01/09/2013 HPV Vaccines (1 - 3-dose series) 01/09/2015 DTaP/Tdap/Td Vaccines (1 - Tdap) 01/09/2019 Hepatitis B Vaccines (1 of 3 - 19+ 3-dose series) 01/09/2019 COVID-19 Vaccine (2 - 2023-2 5 season) 2023 05/20/2020 Pneumococcal Vaccine: Pediat prashanth (0-5 Years) and At-Risk Patients (6 to 49 Years) Aged Out No longer eligible b ased on patient's age to complete this topic Care Teams Crew Supervisor Relationship Specialty Start Date End Date Pcp, No PCP - General General Medicine 07/29/21
[2024-03-21 22:25] LABS: Basophils Absolute Auto 0.1 X10*3/uL (0.0-0.2); Basophils Percent Auto 0.4 % (0-2); Eosinophils Absolute Auto 0.2 X10*3/uL (0.0-0.4); Eosinophils Percent Auto 1.3 % (0-4); Hematocrit 39.3 % (37.0-47.0); Hemoglobin 13.1 g/dl (12.0-16.0); Imm Gran Abs Auto 0.06 X10*3/uL (0.00-0.03); Imm Gran Pct Auto 0.4 % (0.0-0.4); Lymphocytes Absolute Auto 2.9 X10*3/uL (1.2-4.9); Lymphocytes Percent Auto 21.6 % (20-40); MANUAL DIFF FLAG NO; Mean Corpuscular HGB Conc 33.3 g/dl (31.0-35.0); Mean Corpuscular Hemoglobin 28.5 pg (27.0-33.0); Mean Corpuscular Volume 85.6 fL (80.0-98.0); Mean Platelet Volume 9.3 fL (9.4-12.3); Monocytes Absolute Auto 1.2 X10*3/uL (0.1-1.2); Monocytes Percent Auto 8.7 % (2-11); Neutrophils Absolute Auto 9.1 x10*3/uL (2.0-8.3); Neutrophils Percent Auto 67.6 % (45-73); Platelet Count 352 X10*3/uL (160-400); Red Blood Count 4.59 X10*6/uL (4.20-5.50); Red Cell Distribution Width 12.5 % (11.0-16.0); White Blood Count 13.5 X10*3/uL (4.8-10.8)
[2024-03-21 22:37] LABS: IDNOW Serial# 58CA691E; Strep A Nucleic Acid Negative (Negative)
[2024-03-21 22:49] LABS: Alanine Aminotransferase 39 U/L (0-31); Albumin Level 4.5 g/dL (3.5-5.0); Alkaline Phosphatase 73 U/L (39-117); Anion Gap 12 (12-20); Aspartate Amino Transferase 25 U/L (5-31); Bilirubin Total 0.2 mg/dL (0.0-1.0); Blood Urea Nitrogen 8 mg/dL (9-16); Calcium 9.2 mg/dL (8.4-10.2); Carbon Dioxide 24 mmol/L (22-29); Chloride 107 mmol/L (96-108); Creatinine Clr Calc Pharmacy 139.1; Estimated Glomerular Filt Rate > 60; Glucose Random 82 mg/dL (60-115); Lipase 17 U/L (8-78); Potassium 4.1 mmol/L (3.3-5.1); Sodium 139 mmol/L (135-145); Total Protein 8.3 g/dL (6.5-8.0)
[2024-03-21 22:50] LABS: HCG Quantitative < 2 mIU/mL
[2024-03-21 23:03] LABS: Influenza A PCR NEGATIVE (Negative); Influenza B PCR NEGATIVE (Negative); Resp Syncy Virus RNA Qual PCR NEGATIVE (Negative); SARS COV2 PCR INHOUSE NEGATIVE (Negative)
[2024-03-22] MEDS: Azithromycin 500 MG TABLET PO (02:20)
[2024-03-22] MEDS: Doxycycline Monohydrate 100 MG CAPSULE PO (02:20)
[2024-03-22] MEDS: Benzonatate 100 MG CAPSULE 200 MG PO (02:21)
== END 2024-03-22 02:30 | disposition home or self-care (01) ==
PROVIDERS: Physician Assistant; Emergency Provider Internal Medicine
DX: J40 Bronchitis, not specified as acute or chronic (principal); R05.9 Cough, unspecified; R09.89 Other specified symptoms and signs involving the circulatory and respiratory systems; Z03.818 Encounter for observation for suspected exposure to other biological agents ruled out
CPT/HCPCS: 0241U; 71046; 80053; 83690; 84702; 85025; 87651; 99281; 99283

== ENCOUNTER → 2024-03-21 19:35 | Outpatient (BNV) | payer OTHER, SELFPAY | PROVIDERS: Visit Provider Student in an Organized Health Care Education/Training Program | DX: R07.9 Chest pain, unspecified (principal) | CPT/HCPCS: 71046 ==

== ENCOUNTER 2024-09-29 23:41 | Emergency (ER) | payer BC, SELFPAY ==
--- NOTE | ~2024-09-29 | CT_ITS ---
CLINICAL HISTORY: LLQ pain CT abdomen and pelvis with contrast Comparison: None provided Findings: CT abdomen: No infiltrates within the lung bases. No pleural effusion. No acute bony abnormality. No focal hepatic lesion. Mild fatty infiltration of the liver. Main portal vein is patent. Spleen, pancreas, gallbladder, and adrenal glands are unremarkable. Symmetric enhancement of the kidneys without mass or hydronephrosis. No dilated small bowel. No free fluid or free air. Tiny mesenteric lymph nodes all measure less than 5 mm in short axis. These are scattered throughout the abdomen and pelvis. These are increased in number but not size. CT pelvis: No colonic wall thickening or pericolonic inflammatory stranding. No findings of appendicitis. No free fluid or free air. IMPRESSION: Small mesenteric lymph nodes throughout the abdomen and pelvis are increased in number but not size. Although nonspecific, this is frequently seen with mild enteritis or mesenteric adenitis. This document has been electronically signed by: Aldo Woods MD on 09/30/2024 02:09:19
[2024-09-29 23:46] VITALS: BP 145/90; PULSE 104; RESP 16; TEMP 36.8; BMI 32.8
--- OUTSIDE RECORDS SUMMARY | 2024-09-30 00:07 | XMS_ITS | Clinical Summary ---
Author Organization [facility] Address [address] [place] [address] Phone Care Team Providers Care Pulp And Paper Tester Name Role Phone Bassem Iniguez MD Primary Care Provider Allergies Active Allergy Reactions Criticality Noted Date Comments Metronidazole Palpitations Medium 10/25/2020 Medications propranoloL (INDERAL) 20 MG immediate release tablet [...] with a working camera? Not on file Comments Unknown Sex and Gender Information Value Date Recorded Sex Assigned at Not on file Legal Sex Female 1:52 PM EST Gender Identity Not on file [...] DEPRESSION SCREENING 2012 SMOKING Hx and SMOKELESS TOB ACCO SCREENING 01/09/2013 CHLAMYDIA SCREENING 2016 HPV VACCINES (2 - 3-dose series) 07/28/2016 07/01/19 17 HEPATITIS A VACCINES (2 of 2 - 2-dose series) 12/31/2016 06/30/2016 HEPATITIS C SCREENING 01/09/2018 HIV ONE-TIME SCREENING (18-6 5 YEARS) 01/09/2018 PAP SMEAR 01/09/2021 COVID-19 VACCINE (2 - 2023-2 5 season) 2023 05/20/2020 MENINGOCOCCAL VACCINES (ACWY) Completed 06/30/2016 HIB VACCINES Aged Out No longer eligi ble based on patient's age to complete this topic MENINGOCOCCAL VACCINES (B) Aged Out N o longer eligible based on patient's age to complete this topic PNEUMOCOCCAL VACCINES (0-49 years) Aged Out No longer eligible based on patient's age to complete this topic Medical Devices Not on file Insurance [facility]CO [facility] [employer] ALLANCE [facility] [employer] [facility] [employer] ALLANCE ACO [facility] [employer] [employer] [facility] Member Subscriber Plan / Payer (Ef fective 2021-Present) Name:Charlee Clintona Relation to Subscriber:Self Name:Aliya Clinton Payer ID:[id number] Group ID:[id number] Type:Medicaid Address: [place] [id number] [employer] Care Teams Pulp And Paper Tester Relationship Specialty Start Date End Date Bassem Iniguez MD PCP - General Family Medicine 03/25/21 Additional Source Comments The information contained in this document represents components of the legal health record. It is not the complete legal health record.[facility]
--- OUTSIDE RECORDS SUMMARY | 2024-09-30 00:07 | XMS_ITS | Clinical Summary ---
Author Organization [facility] Address [address] [place] [address] Care Team Providers Care Wet Cotton Feeder Name Role Phone No, Pcp STOCK LAYER Primary Care Provider Unavailabl e Social History [...] Adults 18 yrs or above (or HM Modifier)([facility]) 01/09/2018 Hepatitis C Virus Infection in Adolescents and Adults: Screening (or Modifier) ([facility]) 01/09/2018 SDOH Screening Reminder: Kylie garcia for all adults ([facility]) 01/09/2018 Tobacco Smoking Cessation: i n Adults excluding Women: Behavioral and Pharmacotherapy Interventions ([facility]) 01/09/2018 DTaP/Tdap/Td Vaccines ([facility]) (1 - Tdap) 01/09/2019 Cervical Cancer Screenin 1-65 yrs of age (or Modifier) 01/09/2021 Cervical Cancer Screening: P ap every 3 yrs pts age 21-65 01/09/2021 Cervical Cancer: Pap Screeni ng with Modifier timing ([facility]) 01/09/2021 Cervical Cancer: hrHPV alone or with cotesting Pap for Pts 30-65yrs screening every 5yrs ([facility]) 01/09/2021 COVID-19 Vaccine Screening: Initial Series and Booster Status ([facility]) ( - 2023- season) 2023 Flu Vaccination: Yearly for ages 18mos through 64 years (or Modifier)([facility]) 09/09/2024 Zoster/Shingles Vaccine Seri es Screening: Adults aged 18+ yrs (or HM Modifiers)([facility]) (1 of 2) 01/09/2050 Pneumococcal Vaccination Scr eening: Pts 0-19 & 19-49 yrs of age ([facility]) Aged Out No longer eligible based on patient's age to complete this topic Medical Devices Not on file Insurance [facility] [place] [address] Care Teams Wet Cotton Feeder Relationship Specialty Start Date End Date No, Pcp, STOCK LAYER N/A Do not use PCP - General Family Medicine 02/20/20
--- OUTSIDE RECORDS SUMMARY | 2024-09-30 00:07 | XMS_ITS | Clinical Summary ---
Author Organization [facility] Address [address] [place] [address] Phone Care Team Providers Care Seaweed Harvester Name Role Phone Cameron Junior MD Primary Care Provider [phone] Allergies Active Allergy Reactions Criticality Noted Date Comments Metronidazole Palpitations High 10/25/2020 Prednisone Flushing,Itching,Rash 06/11/2021 After 2 days Medications albuterol sulfate (ProAir RespiClick) 90 mcg/actuation aerosol powdr breath activated Inhale 2 Puffs into the lungs every 4 hours as needed (wheezing, shortness of breath). 2 Active metoprolol tartrate (LOPRESSOR) 25 mg tablet Take 25 mg by mouth 2 times daily. Prn per early breastfeeding care specialist dr Flores Active spironolactone (ALDACTONE) 50 mg tablet Take 1 tablet (50 mg total) by mouth 1 (one) time each day. 5 Active ergocalciferol (VITAMIN D-2) 1,250 mcg (50,000 unit) capsule Take 1 capsule (50,000 Units total) by mouth 1 (one) time per week. 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 I have not scheduled a routine clinical follow-up at this time and I am happy to see her on as-needed basis. Tachycardia 03/25/2021 Hyperthyroidism 01/24/2021 Tourette syndrome 10/28/2019 Overview (12/31/2023): Per neuro 11/2019 Resolved Problems Problem Noted Date Diagnosed Date Resolved Date Tonsillar hypertrophy 07/18/20202024 Overview (12/31/2023): Dr Garcia Anxiety 12/22/2019 06/14/2024 Immunizations Name Administration Dates Next Due DTaP (Infanrix) 6wks to less than 7yo ,03/01/2002,2000,07/14,2000 [id number] (Pentacel) 2mo to less than 5yo 06/30/2001,2000,2000,03/23 HPV 9-valent (Gardisil) 9yo to less than 46yo 06/30/2016 HPV, Quadrivalent 12/01/2013 Hepatitis A Adult (Havrix; V aqta) 19yo and older 12/01/2013 Hepatitis A Pediatric (Havri x; Vaqta) 12mo to less than 19yo 06/30/2016 Hepatitis B (Jbvqrqc-U-Abbfj , Recombivax HB-Adult) 19yo and older 08/30/2021 Hepatitis B Pediatric (Enger ix B; Recombivax HB) to less than 20 yo 2000,2000,2000 IPV Inactivated polio (Ipol) 6wks and older 04/04/2005,2000,2000,03/23 Influenza Quadravalent, MDCK , 0.5ml, preservative free (Flucelvax) 6mo and older 12/16/2021,04/25/2020 Influenza Quadrivalent, 0.5m l, preservative free (Fluarix; FluLaval; Fluzone) ages 6mo and older (Afluria) 3yo and older 12/21/2020,12/26/2017 Influenza trivalent, 0.5mL, preservative free (Fluarix; FluLaval; Fluzone) ages 6mo and older (Afluria) 3 years and older 12/21/2020,12/26/2017,11/11/2013 Influenza trivalent, MDCK, 0 .5mL, preservative free (Flucelvax) 6mo and older 11/06/2023 Influenza trivalent, with pr eservative (Fluzone; Afluria) 6mo and older 11/11/2013 Influenza, Unspecified 12/23/2020 MMR, measles mumps and rubel la Live (Priorix; M-M-R II) 12mo and older 04/04/2005,03/31/2001 Measles 08/23/2021 Meningococcal MCV4P 06/30/2016,03/24/2011 Pneumococcal Conjugate Vacci ne, 7 Valent 03/23/2003,2000,2000,03/23 Tb Skin Test 08/23/2021 Tdap Tetanus diptheria acell ular pertussis (Boostrix; Adacel) 7yo and older 08/30/2021,03/24/2011 Varicella live (Varivax) 12m o and older 08/30/2021,06/26/2008,06/30/2001 Surgical History Surgery Date Site/Laterality Comments OTHER SURGICAL HISTORY PROCEDURE: [place] UNLISTED PROCEDURE VESTIBULE MOUTH TONSILLECTOMY 08/01/2020 Bilateral [...] pur e alcohol) Education Answer Date Recorded What is the highest level of school you have completed or the highest degree you have received? High school graduate 05/11/2024 Comments No Sex and Gender Information Value [...] Sign Reading Time Taken Comments Blood Pressure 104/70 05/11/2024 2:21 PM EDT Pulse 98 05/11/2024 2:21 PM EDT Temperature - - Respiratory Rate - - Oxygen Saturation 100% 05/11/2024 2:21 PM EDT Inhaled Oxygen Concentration - - Weight 90.7 kg (200 lb) 05/11/2024 2:21 PM EDT Height 165.1 cm (5' 5 ) 02/18/2024 10:28 AM EST Body Mass Index 33.28 02/18/2024 10:28 AM EST Plan of Treatment Upcoming Encounters Date Type Department Care Team (Late st Contact Info) Description 10/03/2024 4:00 PM EDT Office Visit Internal Medicine - [address] [place] [address] Ronn Galan NP [address] [place] [address] 05/11/2025 8:30 AM EDT Office Visit Internal Medicine - [place] [address] [facility] [address] [place] [id number] Cameron Junior MD [address] [facility] [address] [place] [address] Health Maintenance Due Date Last Done Comments HIV Screening 01/18/2022 COVID-19 Vaccine ( season) 2023 05/20/2020 Depression Screening 02/10/2024 Influenza Vaccine (#1) 2024 , 12/16/2021, 12/23/2020, Additional history exists Gonorrhea/Chlamydia Screening 02/17/2025 02/18/2024 Social Influencers of Health Screening 05/11/2025 05/11/2024 Cervical Cancer Screening: Pap Smear 02/17/2027 02/18/2024 Cholesterol Screening (Lipid Panel) 05/11/2029 05/11/2024, 09/17/2023, 09/17/2023 DTaP,Tdap,and Td Vaccines (8 - Td or Tdap) 08/31/2031 08/30/2021, 03/24/2011, 04/04/2005, Additional history exists HIB Vaccines Completed 06/30/2001, 08/10, 2000, Additional history exists Pneumococcal Vaccine: Pediatrics (0 to 5 Years) and At-Risk Patients (6 to 49 Years) Completed 03/23/2003, 2000, 2000, Additional history exists IPV Vaccines Completed 04/04/2005, 06/10, 2000, Additional history exists MMR Vaccines Completed 04/04/2005, 03/31/2001 HPV Vaccines Completed 06/30/2016, 12/01/2013 Hepatitis A Vaccines Completed 06/30/2016, 12/02/19 14 Meningococcal ACWY Vaccine Completed 06/30/2016, Hepatitis B Vaccines Completed 08/30/2021, 2000, 2000, Additional history exists Varicella Vaccines Completed 08/30/2021, 0 06/26/2008, 06/30/2001 Hepatitis C Screening Completed 09/17/2023 Meningococcal B Vaccine Aged Out No l onger eligible based on patient's age to complete this topic RSV Immunization Patients Under 20 months Aged Out No longer eligible based on patient's age to complete this topic Procedures Procedure Name Priority Date/Time Associated Diagnosis Comments LIPID PANEL WITH REFLEX TO DIRECT LDL Routine 05/11/2024 3:33 PM EDT Encounter for annual physical exam Encounter for lipid screening for cardiovascular disease PAP SMEAR Routine 02/18/2024 10:54 AM EST Encounter for well woman exam with routine gynecological exam Screening for malignant neoplasm of cervix CHLAMYDIA TRACHOMATIS AND NEISSERIA GONORRHOEAE PCR Routine 02/18/2024 10:54 AM EST Encounter for well woman exam with routine gynecological exam Screen for STD (sexually transmitted disease) HEPATITIS C SCREENING Routine 09/17/2023 from Last 3 Months or Most Recently Relevant to Health Maintenance Results * (ABNORMAL) Lipid panel with reflex to direct LDL (05/11/2024 3:33 PM EDT) Cholesterol 218(H) 0 - 200 mg/dL LAB CHEMISTRY METHOD 05/11/2024 7:36 PM EDT [facility] Triglycerides 164(H) 0 - 150 mg/dL LAB CHEMISTRY METHOD 05/11/2024 7:36 PM EDT [facility] HDL 47 >=40 mg/dL LAB CHEMISTRY METHOD 05/11/2024 7:36 PM EDT [facility] LDL Calculated 138(H) 0 - 100 mg/dL LAB CHEMISTRY METHOD 05/11/2024 7:36 PM EDT [facility] VLDL Cholesterol Sly 32.8 mg/dL LAB CHEMISTRY METHOD 05/11/2024 7:36 PM EDT [facility] Non HDL Chol. (LDL+VLDL) 171(H) <145 mg/dL LAB CHEMISTRY METHOD 05/11/2024 7:36 PM EDT [facility] Chol/HDL Ratio 4.6(H) 0.0 - 4.4 LAB CHEMISTRY METHOD 05/11/2024 7:36 PM EDT [facility] Blood Venous blood specimen / Unknown Venipuncture / Unknown 05/11/2024 3:33 PM EDT 05/11/2024 3:33 PM EDT Cameron Junior MD LAB BLOOD ORDERABLES Final Resul t [facility] [address] [place] [address], [place] [phone] * Chlamydia trachomatis and Neisseria gonorrhoeae molecular study (02/18/2024 10:54 AM EST) Neisseria gonorrhoeae PCR Negative Negative LAB MOLECULAR DIAGNOSTICS METHOD 02/19/2024 11:38 AM EST [facility] Chlamydia trachomatis PCR Negative Negative LAB MOLECULAR DIAGNOSTICS METHOD 02/19/2024 11:38 AM EST [facility] Swab Cervix uteri structure / Unknown Non-blood Collection / Unknown 02/18/2024 10:54 AM EST 02/18/2024 4:03 PM EST Vianca Patton CNM LAB MICROBIOLOGY - GENERAL OR DERABLES Final Result [facility] [address] [place] [address], [place] [phone] * Pap smear (02/18/2024 10:54 AM EST) Interpretation Negative for intraepithelial lesion or malignancy 02/23/2024 8:22 AM [facility] General Categorization Negative 02/23/2024 8:22 AM [facility] LMP 02/04/2024 02/23/2024 8:22 AM [facility] Specimen Adequacy Satisfactory for evaluation, endocervical/myers sformation zone component absent 02/23/2024 8:22 AM [facility] Pap Methodology Liquid Based Pap Test 02/23/2024 8:22 AM [facility] Disclaimer The Pap test is a screening test which carries an inherent false negative rate. These test results should be correlated with the patient's clinical findings and history. This Pap test was processed using an automated screening system. Technical cytopathology services provided by [facility], at [address] [place] [id number] (CLIA # [id number]/Sushila Mendoza MD, Gasoline Engine Assembler.) 02/23/2024 8:22 AM [facility] Console Pap Interpretation Reported 02/23/2024 8:22 AM [facility] Brushing/Spatula Cervix uteri structure / Unknown 02/18/2024 10:54 AM EST 02/19/2024 6:49 AM EST Vianca Patton [facility] CYTOLOGY ORDERABLES Final Result [facility] [address] [place] [address], * Hepatitis C Screening (09/17/2023) Hepatitis C Screening abstracted Historical Provider HEALTH MAINTENANCE Final Result from Last 3 Months or Most Recently Relevant to Health Maintenance Insurance [facility] Care Teams Seaweed Harvester Relationship Specialty Start Date End Date Cameron Junior MD [address] [place] [address] PCP - General 06/22/23
--- OUTSIDE RECORDS SUMMARY | 2024-09-30 00:07 | XMS_ITS | Clinical Summary ---
Author Organization [facility] Address [address] [place] [address] Care Team Providers Care Optical Engineering Manager Name Role Phone Pcp, No Primary Care Provider Unavailabl e Social History Tobacco Use Types Packs/Day Years Used Date Smoking Tobacco: Never Assessed Comments Unknown Sex and Gender Information Value Date Recorded Sex Assigned at Not on file Legal Sex Female 11:16 AM EDT Gender Identity Not on file Sexual Orientation [...] age to complete this topic Care Teams Optical Engineering Manager Relationship Specialty Start Date End Date Pcp, No PCP - General General Medicine 07/29/21
--- OUTSIDE RECORDS SUMMARY | 2024-09-30 00:07 | XMS_ITS ---
Author Name [facility] Organization Unknown Encounters Encounter Type Encounter Reason Primary Diagnosis Location Date Emergency multiple complaints [facility] 09/25/2021 Ambulatory Encounter for pre-employment examination [place] [facility] 07/29/2021 Care Team Organization Name Specialty Phone Email Start Date End Da te [facility] Bassem Iniguez Primary Care [id number] [facility] OUT OF TOWN PCP ED ONLY Primary Care 09/25/2021 09/25/2021 [facility] NO PCP Primary Care 07/29/2021 07/29/2021 [facility] PCP,No Primary Care 07/29/2021
[2024-09-30 00:18] LABS: Hematocrit 38.0 % (37.0-47.0); Hemoglobin 12.9 g/dl (12.0-16.0); Imm Gran Abs Auto 0.03 X10*3/uL (0.00-0.03); Imm Gran Pct Auto 0.3 % (0.0-0.4); Lymphocytes Absolute Auto 3.6 X10*3/uL (1.2-4.9); MANUAL DIFF FLAG NO; Mean Corpuscular HGB Conc 33.9 g/dl (31.0-35.0); Mean Corpuscular Hemoglobin 28.0 pg (27.0-33.0); Mean Corpuscular Volume 82.4 fL (80.0-98.0); NRBC Abs Auto 0.000 X10*3/uL (0.0-0.012); NRBC Pct Auto 0.0 /100WBC (0.0-0.2); Platelet Count 320 X10*3/uL (160-400); Red Blood Count 4.61 X10*6/uL (4.20-5.50); White Blood Count 8.7 X10*3/uL (4.8-10.8)
[2024-09-30 00:19] LABS: Appearance Urine Clear; Glucose Urine UA Negative (Negative); PH 6.5 (5.0-9.0); Specific Gravity - Urine 1.015 (1.005-1.025)
[2024-09-30 00:20] LABS: UPreg QC Valid YES
[2024-09-30 00:33] LABS: Alanine Aminotransferase 59 U/L (0-31); Albumin Level 4.7 g/dL (3.5-5.0); Alkaline Phosphatase 82 U/L (39-117); Anion Gap 15 (12-20); Aspartate Amino Transferase 36 U/L (5-31); Blood Urea Nitrogen 10 mg/dL (9-16); Calcium 9.5 mg/dL (8.4-10.2); Carbon Dioxide 25 mmol/L (22-29); Chloride 103 mmol/L (96-108); Creatinine Clr Calc Pharmacy 140.8; Estimated Glomerular Filt Rate > 60; Lipase 22 U/L (8-78); Potassium 4.1 mmol/L (3.3-5.1); Sodium 139 mmol/L (135-145); Total Protein 7.5 g/dL (6.5-8.0)
--- NOTE | 2024-09-30 00:40 | ED.ABDPAIN ---
HPI - Abdominal Pain General Chief Complaint: Abdominal Pain Stated Complaint: abd pain Time Seen by Provider: 09/30/24 00:19 Source: patient Mode of arrival: ambulatory Limitations: no limitations History of Present Illness ED Provider: Dr. Danika Bright HPI narrative: Patient comes to the emergency room complaining of 2 weeks of left lower quadrant pain. Patient states that it is worse when she eats, no right upper quadrant pain, complaining of intermittent nausea, no vomiting, 1 episode of diarrhea, no blood in the stool. Patient states that sometimes she feels that the left lower quadrant pain radiates towards the vaginal area. Patient denies discharge, denies hematuria or dysuria, occasional frequent urination. Related Data Home Medications ?Medication ?Instructions ?Recorded ?Confirmed amoxicillin 875 mg tablet 875 mg PO BID 09/20/20 cetirizine 10 mg tablet 10 mg PO DAILY 09/20/20 clonazepam 0.5 mg tablet mg PO 09/20/20 clonidine HCl 0.1 mg tablet 0.1 mg PO TID 09/20/20 fluoride (sodium) 1.1 % dental gel PO 09/20/20 (SF) haloperidol 2 mg tablet 2 mg PO BID 09/20/20 ibuprofen 600 mg tablet 600 mg PO Q6H PRN pain 09/20/20 medroxyprogesterone 150 mg/mL 150 mg IM [id number] 09/20/20 intramuscular suspension methylprednisolone 4 mg tablets in mg PO 09/20/20 a dose pack metronidazole 500 mg tablet 500 mg PO BID 09/20/20 sertraline 100 mg tablet 100 mg PO DAILY 09/20/20 sertraline 25 mg tablet 25 mg PO DAILY 09/20/20 sertraline 50 mg tablet 50 mg PO DAILY 09/20/20 Previous Rx's ?Medication ?Instructions ?Recorded azithromycin 250 mg tablet 250 mg PO DAILY 4 days #4 tabs 03/22/24 (Zithromax) benzonatate 200 mg capsule 200 mg PO TID PRN cough #30 caps 03/22/24 doxycycline hyclate 100 mg tablet 100 mg PO BID #20 tabs 03/22/24 Allergies Allergy/AdvReac Type Severity Reaction Status Date / Time metronidazole Allergy Palpitation Verified 09/29/24 23:49 s Review of Systems Review of Systems Constitutional : No Weight loss, No Fever, No Chills, No Night Sweats, No Fatigue, No Malaise ENT/Mouth : No Hearing loss, No Ear Pain, No Nasal Congestion, No Sinus Pain, No Hoarseness, No sore throat, No Rhinorrhea, No Swallowing Difficulty Eyes: No Eye Pain, No Swelling, No Redness, No Foreign Body, No Discharge, No Vision Changes Cardiovascular : No Chest Pain, No SOB, No Dyspnea on Exertion, No Orthopnea, No Edema, No Palpitations Respiratory : No Cough, No Sputum, No Wheezing, No Smoke Exposure, No Dyspnea Gastrointestinal : No Nausea, No Vomiting, No Diarrhea, No Constipation,complaining of left lower quadrant pain Genitourinary : no irregular bleeding, No Dysuria, No Urinary Frequency, No Hematuria, No Urinary Incontinence, No Urgency, No Flank Pain, No Urinary Flow Changes, No Hesitancy Musculoskeletal : No joint pain, No Myalgias, No Joint Swelling Skin : No Skin Lesions, No rash Neuro : No Weakness, No Numbness, No Paresthesias, No Loss of Consciousness, No Dizziness, No Headache Psych : No Anxiety/Panic, No Depression, No SI/HI/AH/VH, No Social Issues, Heme/Lymph: No Bruising, No Bleeding,No Lymphadenopathy Endocrine : No Polyuria, No Polydipsia, No Temperature Intolerance [facility] Past Medical History Medical History Tourettes disease Social History Social History Alcohol intake: never Advance Directives: No Physical Exam ED Exam Exam: Appearance: Alert. Oriented X3. No acute distress. Eyes: Pupils equal, round and reactive to light. ENT: Pharynx normal. Neck: Normal inspection. Neck supple. No lymph nodes noted. No crepitus CVS: Normal heart rate and rhythm. Pulses normal. Normal S1 and S2 Respiratory: No respiratory distress. Breath sounds normal. No Wheezing. No rales Abdomen: Soft, no significant tenderness to palpation, no rebound or guarding, no rigidity. No distention. Skin: Skin warm and dry. Normal skin color. Normal skin turgor. Extremities: No lower extremity edema. No Lacerations. No Rash Neuro: Oriented X 3. No motor deficit. No sensory deficit. Moving all extremities. No slurred speech. CN 2 through 12 grossly intact Psych: calm, cooperative, normal affect Vital Signs: Vital Signs - 24 hr 08/21/25 23:46 Temperature 98.3 F Pulse Rate 104 H Respiratory Rate 16 Blood Pressure 145/90 H Oxygen Delivery Method Room Air BMI result Body Mass Index 32.8 Medical Decision Making Medical Decision Making [facility] Narrative: My interpretation of labs: Patient's white blood cell count and hematology at baseline, no acute abnormalities, chemistry within normal limits, slightly bumped AST and ALT, urinalysis negative, test negative, gonorrhea lab result pending CT scan of the abdomen shows mesenteric adenitis I discussed the above-mentioned with the patient Differential Diagnosis Differential Diagnoses: The differential diagnosis associated with the presentation includes (Ovarian cyst, kidney stone, diverticulitis, mesenteric adenitis) Admission/Observation Consideration of admission/observation: Escalation of care including admission/observation considered (Given patient's symptoms and presentation, observation was considered) Lab Data [facility] Lab Attestation statement: I reviewed the patient's lab results. 09/30/24 00:10 09/30/24 00:10 Labs: Lab Results 09/30/24 Range/Units 00:10 WBC 8.7 (4.8-10.8) X10*3/uL RBC 4.61 (4.20-5.50) X10*6/uL Hgb 12.9 (12.0-16.0) g/dl Hct 38.0 (37.0-47.0) % MCV 82.4 (80.0-98.0) fL MCH 28.0 (27.0-33.0) pg MCHC 33.9 (31.0-35.0) g/dl RDW 12.6 (11.0-16.0) % Plt Count 320 (160-400) X10*3/uL MPV 9.0 L (9.4-12.3) fL Immature Gran % (Auto) 0.3 (0.0-0.4) % Neut % (Auto) 47.1 (45-73) % Lymph % (Auto) 41.5 H (20-40) % [place] % (Auto) 8.2 (2-11) % Eos % (Auto) 2.4 (0-4) % Baso % (Auto) 0.5 (0-2) % Lymph # (Auto) 3.6 (1.2-4.9) X10*3/uL [place] # (Auto) 0.7 (0.1-1.2) X10*3/uL Eos # (Auto) 0.2 (0.0-0.4) X10*3/uL Baso # (Auto) 0.0 (0.0-0.2) X10*3/uL Abs Immat Gran (auto) 0.03 (0.00-0.03) X10*3/uL Absolute Neuts (auto) 4.1 (2.0-8.3) x10*3/uL Absolute Nucleated RBC 0.000 (0.0-0.012) X10*3/uL Nucleated RBC % (auto) 0.0 (0.0-0.2) /100WBC Sodium 139 (135-145) mmol/L Potassium 4.1 (3.3-5.1) mmol/L Chloride 103 (96-108) mmol/L Carbon Dioxide 25 (22-29) mmol/L Anion Gap 15 (12-20) BUN 10 (9-16) mg/dL Creatinine 0.68 (0.5-1.4) mg/dL Estim Creat Clear Calc 140.8 Estimated GFR > 60 Random Glucose 106 (60-115) mg/dL Calcium 9.5 (8.4-10.2) mg/dL Total Bilirubin 0.3 (0.0-1.0) mg/dL Direct Bilirubin 0.1 (0.0-0.5) mg/dL AST 36 H (5-31) U/L ALT 59 H (0-31) U/L Alkaline Phosphatase 82 (39-117) U/L Total Protein 7.5 (6.5-8.0) g/dL Albumin 4.7 (3.5-5.0) g/dL Lipase 22 (8-78) U/L Urine Color Yellow Urine Appearance Clear Urine pH 6.5 (5.0-9.0) Ur Specific [place] 1.015 (1.005-1.025) Urine Protein Negative (Neg-Trace) mg/dL Urine Glucose (UA) Negative (Negative) mg/dL Urine Ketones Negative (Negative) mg/dL Urine Blood Negative (Negative) Urine Nitrite Negative (Negative) Ur Leukocyte Esterase Negative (Negative) Urine Test NEGATIVE (NEGATIVE) Independent Interpretation I performed an independent interpretation of an: CT Scan Radiology Impression Discussion of test interpretation with radiology: I have reviewed the radiologist's reading. Radiologist Impression: No infiltrates within the lung bases. No pleural effusion. No acute bony abnormality. No focal hepatic lesion. Mild fatty infiltration of the liver. Main portal vein is patent. Spleen, pancreas, gallbladder, and adrenal glands are unremarkable. Symmetric enhancement of the kidneys without mass or hydronephrosis. No dilated small bowel. No free fluid or free air. Tiny mesenteric lymph nodes all measure less than 5 mm in short axis. These are scattered throughout the abdomen and pelvis. These are increased in number but not size. CT pelvis: No colonic wall thickening or pericolonic inflammatory stranding. No findings of appendicitis. No free fluid or free air. IMPRESSION: Small mesenteric lymph nodes throughout the abdomen and pelvis are increased in number but not size. Although nonspecific, this is frequently seen with mild enteritis or mesenteric adenitis. Medications Administered Discontinued Medications Generic Name Dose Route Start Last Admin Trade Name Freq PRN Reason Stop Dose Admin Iohexol 85 ml 09/30/24 01:26 09/30/24 01:26 Iohexol 350 Mg/Ml 100 Ml Infus..Btl IV 09/30/24 01:27 85 ml ONCE ONE Administration Critical Care Time Critical Care Time Critical Care Time: Yes Total Critical Care Time: 35 Attestation: I have personally provided critical care time. Time includes review of lab data, radiology results, discussion with consultants, and monitoring for potential decompensation. Intervention performed as documented. Discharge Plan Discharge Clinical Impression: Mesenteric adenitis Patient Disposition: Home, Self-Care Instructions: Mesenteric Adenitis (ED) Additional Instructions: Please follow-up with your primary care physician tomorrow. If you have any worsening or new symptoms, please return to the emergency room or call 911 Prescriptions: No Action doxycycline hyclate 100 mg tablet 100 mg PO BID Qty: 20 0RF azithromycin [Zithromax] 250 mg tablet 250 mg PO DAILY 4 Days Qty: 4 0RF Rx Instructions: start on day 2 of therapy benzonatate 200 mg capsule 200 mg PO TID PRN (Reason: cough) Qty: 30 0RF medroxyprogesterone 150 mg/mL suspension 150 mg IM [id number] metronidazole 500 mg tablet 500 mg PO BID sertraline 100 mg tablet 100 mg PO DAILY sertraline 50 mg tablet 50 mg PO DAILY haloperidol 2 mg tablet 2 mg PO BID methylprednisolone 4 mg tablets,dose pack PO sertraline 25 mg tablet 25 mg PO DAILY cetirizine 10 mg tablet 10 mg PO DAILY ibuprofen 600 mg tablet 600 mg PO Q6H PRN (Reason: pain) amoxicillin 875 mg tablet 875 mg PO BID clonazepam 0.5 mg tablet PO fluoride (sodium) [SF] 1.1 % gel PO clonidine HCl 0.1 mg tablet 0.1 mg PO TID Print Language: Nepali
[2024-09-30] MEDS: iohexoL 350 MG/ML 100 ML INFUS..BTL 85 ML IV (01:26)
[2024-09-30 02:42] VITALS: BP 119/79; PULSE 82; RESP 16; TEMP 36.7; O2SAT 97
[2024-09-30 12:29] LABS: CT PCR Urine NOT DETECTED (Not Detect.); NG PCR Urine NOT DETECTED (Not Detect.)
== END 2024-09-30 02:43 | disposition home or self-care (01) ==
PROVIDERS: Emergency Medicine; Emergency Provider Emergency Medicine; PCP Radiology Vascular & Interventional Radiology
DX: I88.0 Nonspecific mesenteric lymphadenitis (principal); R10.32 Left lower quadrant pain; R11.0 Nausea; Z32.02 Encounter for pregnancy test, result negative
CPT/HCPCS: 36415; 74177; 80053; 81003; 81025; 82248; 83690; 85025; 87491; 87591; 99283; 99284; Q9967

== ENCOUNTER → 2024-09-30 00:38 | Outpatient (BNV) | payer BC, SELFPAY | PROVIDERS: Emergency Provider Emergency Medicine; PCP Radiology Vascular & Interventional Radiology; Visit Provider Radiology Diagnostic Radiology | DX: R10.84 Generalized abdominal pain (principal) | CPT/HCPCS: 74177 ==

== ENCOUNTER 2024-12-08 18:55 | Emergency (ER) | payer SELFPAY ==
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
[2024-12-08 19:14] VITALS: BP 171/86; PULSE 108; RESP 16; TEMP 37.2; O2SAT 98; BMI 33.3
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
--- OUTSIDE RECORDS SUMMARY | 2024-12-08 20:10 | XMS_ITS | Clinical Summary ---
Author Organization [facility] Address [address] [place] [id number] Phone Care Team Providers Care Clinical Applications Manager Name Role Phone Bassem Iniguez MD Primary [...] (18-6 5 YEARS) 01/09/2018 PAP SMEAR 01/09/2021 INFLUENZA VACCINE (#1) 2024 , 04/25/2020, 12/26/2017 COVID-19 VACCINE (2 - 2024-2 6 season) 2024 05/20/2020 MENINGOCOCCAL VACCINES (ACWY) Completed 06/30/2016 HIB VACCINES Aged Out No longer eligi ble based on patient's age to complete this topic MENINGOCOCCAL VACCINES (B) Aged Out N o longer eligible based on patient's age to complete this topic PNEUMOCOCCAL VACCINES (0-49 years) Aged Out No longer eligible b ased on patient's age to complete this topic Medical Devices Not on file Insurance [facility] [place] [id number] [employer] [facility] [place] [place] [address] [facility] Member Subscriber Plan / Payer (Ef fective 2021-Present) Name:Oz Aliya Relation to Subscriber:Self Name:Oz Aliya Payer ID:[id number] Group ID:[id number] Type:Medicaid Address: [place] [id number] [place], [place] [address] Care Teams Clinical Applications Manager Relationship Specialty Start Date End Date Bassem Iniguez MD PCP - General Family Medicine 03/25/21 Additional Source Comments The information contained in this document represents components of the legal health record. It is not the complete legal health record.[facility]
--- OUTSIDE RECORDS SUMMARY | 2024-12-08 20:10 | XMS_ITS | Encounter Summary ---
Author Organization [facility] Address [address] [place] [phone] Phone Care Team Providers Care Film Flat Inspector Name Role Phone Felipe Cordero MD Primary Care Provider Encounter Details Date Type Department Care Team (Late st Contact Info) Description 09/25/2016 Conversion Encounter [facility] - [address] [address] Social History Tobacco Use Types Packs/Day Years Used Date Smoking Tobacco: Never Comments:Never smoker Comments Unknown Sex and Gender Information Value Date Recorded Sex Assigned at Not on file Legal Sex Female 5:13 PM EDT Gender Identity Not on file Sexual Orientation Not on file documented as of this encounter Plan of Treatment Not on file documented as of this encounter Visit Diagnoses Not on filedocumented in this encounter Care Teams Film Flat Inspector Relationship Specialty Start Date End Date Felipe Cordero MD [facility] [place] [address] PCP - General Pediatrics 12/01/17 documented as of this encounter
--- OUTSIDE RECORDS SUMMARY | 2024-12-08 20:10 | XMS_ITS | Clinical Summary ---
Author Organization [facility] Address [address] [place] [address] Care Team Providers Care Peer Tutor Name Role Phone No, Pcp CONFORMAL PAD FORMER Primary Care Provider Unavailabl e Social History [...] Adults 18 yrs or above (or HM Modifier)([facility]) 01/09/2018 Hepatitis C Virus Infection in Adolescents and Adults: Screening (or Modifier) ([facility]) 01/09/2018 SDOH Screening Reminder: Kylie garcia for all adults ([facility]) 01/09/2018 Tobacco Smoking Cessation: i n Adults excluding Women: Behavioral and Pharmacotherapy Interventions ([facility]) 01/09/2018 DTaP/Tdap/Td Vaccines ([facility]) (1 - Tdap) 01/09/2019 Cervical Cancer Screenin 1-65 yrs of age (or Modifier) 01/09/2021 Cervical Cancer Screening: P ap every 3 yrs pts age 21-65 01/09/2021 Cervical Cancer: Pap Screeni ng with Modifier timing ([facility]) 01/09/2021 Cervical Cancer: hrHPV alone or with cotesting Pap for Pts 30-65yrs screening every 5yrs ([facility]) 01/09/2021 Flu Vaccination: Yearly for ages 18mos through 64 years (or Modifier)([facility]) 09/09/2024 COVID-19 Vaccine Screening: Initial Series and Booster Status ([facility]) (2023- season) 2024 Zoster/Shingles Vaccine Seri es Screening: Adults aged 18+ yrs (or HM Modifiers)([facility]) (1 of 2) 01/09/2050 Pneumococcal Vaccination Scr eening: Pts 0-19 & 19-49 yrs of age ([facility]) Aged Out No longer eligible based on patient's age to complete this topic Medical Devices Not on file Insurance [facility] Care Teams Peer Tutor Relationship Specialty Start Date End Date No, Pcp, CONFORMAL PAD FORMER N/A Do not use PCP - General Family Medicine 02/20/20
--- OUTSIDE RECORDS SUMMARY | 2024-12-08 20:10 | XMS_ITS | Clinical Summary ---
Author Organization [facility] Address [address] [place] [address] Care Team Providers Care Court Assistant Name Role Phone Pcp, No Primary Care [...] 3-dose series) 01/09/2019 COVID-19 Vaccine (2 - 2024-2 6 season) 2024 05/20/2020 Pneumococcal Vaccine: Pediat prashanth (0-5 Years) and At-Risk Patients (6 to 49 Years) Aged Out No longer eligible b ased on patient's age to complete this topic Care Teams Court Assistant Relationship Specialty Start Date End Date Pcp, No PCP - General General Medicine 07/29/21
--- OUTSIDE RECORDS SUMMARY | 2024-12-08 20:10 | XMS_ITS | Clinical Summary ---
Author Organization [facility] Address [address] [place] [phone] Phone Care Team Providers Care Slitter Operator Name Role Phone Felipe Cordero MD Primary Care Provider Allergies No known active allergies Active Problems Problem Noted Date Diagnosed Date Sinus tachycardia 01/02/2021 Overview (01/02/2021): 12/20/2020 - Hospital admission for persistent sinus tachycardia. Acne 12/01/2017 Oral contraceptive use 12/01/2017 Dysfunctional uterine bleeding 12/01/2017 Hirsutism 12/01/2017 Headache 07/13/2009 Visual disturbance 07/13/2009 Reactive airway disease 11/17/2008 Immunizations Immunization Administration Dates Next Due DTaP 5 04/04/2005, 3,2000, 001,2000 HPV Vaccine 9 Valent 06/30/2016 HPV, Quadrivalent 12/01/2013 Hep A, ped/adol 06/30/2016,12/01/2013 Hep B, ped/adol 2000,2000,2000 Hib (PRP-T) 06/30/2001, 1,2000, 001 IPV 04/04/2005, 1,2000, 001 Influenza Split 10/26/2012,03/24/2011,10/30/2009 Influenza, intranasal, quadrivalent 11/11/2013 MMR 04/04/2005,03/31/2001 Meningococcal Conj (Menactra) MCV4P 06/30/2016,0 03/24/2011 Pneumococcal Conjugate 03/23/2003,2000,2000,02/12/2 001 Tdap 03/24/2011 Varicella 06/26/2008,06/30/2001 Family History Relation Name Status Comments Brother Alive Brother: Alive and well Maternal Grandmother Materna l aunt: Migraines Mother Mother: ADD/ADH D Other No family histo ry of Dental caries, Family history of Strabismus/amblyopia, Family history of Asthma, No family history of Thrombophilia, Family history of Diabetes mellitus, No family history of Heart disease, Family history of Elevated cholesterol, No family history of Sudden /[place] under age 55, No family history of CVA (Stroke) Social History Tobacco Use Types Packs/Day Years Used Date Smoking Tobacco: Never Comments:Never smoker Comments Unknown Sex and Gender Information Value Date Recorded Sex Assigned at Not on file Legal Sex Female 5:13 PM EDT Gender Identity Not on file Sexual Orientation Not on file Last Filed Vital Signs Vital Sign Reading Time Taken Comments Blood Pressure 130/83 06/30/2016 12:00 AM EDT Pulse 95 06/30/2016 12:00 AM EDT Temperature 36.8 C (98.2 F) 06/30/2016 12:00 AM EDT Respiratory Rate - - Oxygen Saturation - - Inhaled Oxygen Concentration - - Weight 68.9 kg (152 lb) 06/30/2016 12:00 AM EDT Height 164.6 cm (5' 4.79 ) 06/30/2016 12:00 AM E DT Body Mass Index 25.46 06/30/2016 12:00 AM EDT Plan of Treatment Health Maintenance Due Date Last Done Comments DTaP,Tdap,and Td Vaccines (7 - Td or Tdap) 03/24/2021 03/24/2011, 04/04/2005, 03/01/2002, Additional history exists Influenza Vaccines (#1) 2024 11/12/19 14, 10/26/2012, 03/24/2011, Additional history exists COVID-19 Vaccine (2024- season) 2024 Hepatitis B Vaccines Completed 2000, 2000, 2000 HIB Vaccines Completed 06/30/2001, 08/10, 2000, Additional history exists Pneumococcal Vaccine Completed 03/23/2003, 2000, 2000, Additional history exists IPV Vaccines Completed 04/04/2005, 08/10, 2000, Additional history exists MMR Vaccines Completed 04/04/2005, 03/31/2001 Varicella Vaccines Completed 06/26/2008, 06/30/2001 HPV Vaccines Completed 06/30/2016, 12/01/2013 Hepatitis A Vaccines Completed 06/30/2016, 12/02/19 14 Meningococcal Vaccine Completed 06/30/2016, 012 Men B Vaccine Aged Out No longer elig ible based on patient's age to complete this topic Care Teams Slitter Operator Relationship Specialty Start Date End Date Felipe Cordero MD [address] [place] [address] [place] [address] PCP - General Pediatrics 12/01/17
--- OUTSIDE RECORDS SUMMARY | 2024-12-08 20:10 | XMS_ITS | Clinical Summary ---
Author Organization [facility] Address [address] [place] [address] Phone Care Team Providers Care It Service Technician Name Role Phone Cameron Junior MD Primary Care Provider [phone] Allergies Active Allergy Reactions Criticality Noted Date Comments Metronidazole Palpitations High 10/25/2020 Prednisone Flushing,Itching,Rash 06/11/2021 After 2 days Medications albuterol sulfate (ProAir RespiClick) 90 mcg/actuation aerosol powdr breath activated Inhale 2 Puffs into the lungs every 4 hours as needed (wheezing, shortness of breath). 2 Active metoprolol tartrate (LOPRESSOR) 25 mg tablet Take 25 mg by mouth 2 times daily. Prn per industrial designer dr Flores Active spironolactone (ALDACTONE) 50 mg tablet Take 1 tablet (50 mg total) by mouth 1 (one) time each day. 5 Active ergocalciferol (VITAMIN D-2) 1,250 mcg (50,000 unit) capsule Take 1 capsule (50,000 Units total) by mouth 1 (one) time per week. 4 capsule 5 5 11/09/19 25 Active Problems Problem Noted Date Diagnosed Date Vitamin D deficiency 09/17/2023 Class 1 obesity 05/23/2021 PSVT (paroxysmal supraventri cular tachycardia) (CMS/HCC V24) 04/11/2021 Overview (12/31/2023): Last Assessment & Plan: Glen Had symptomatic, paroxysmal supraventricular tachycardia in the [...] She will continue have follow-up with her it trainer and primary care physician. I have not scheduled a routine clinical follow-up at this time and I am happy to see her on as-needed basis. Tachycardia 03/25/2021 Hyperthyroidism 01/24/2021 Tourette syndrome 10/28/2019 Overview (12/31/2023): Per neuro 11/2019 Resolved Problems Problem Noted Date Diagnosed Date Resolved Date Tonsillar hypertrophy 07/18/20202024 Overview (12/31/2023): Dr Garcai Anxiety 12/22/2019 06/14/2024 Immunizations Immunization Administration Dates Next Due DTaP (Infanrix) 6wks to less than 7yo ,03/01/2002,2000,07/14,2000 [id number] (Pentacel) 2mo to less than 5yo 06/30/2001,2000,2000,03/23 HPV 9-valent (Gardisil) 9yo to less than 46yo 06/30/2016 HPV, Quadrivalent 12/01/2013 Hepatitis A Adult (Havrix; V aqta) 19yo and older 12/01/2013 Hepatitis A Pediatric (Havri x; Vaqta) 12mo to less than 19yo 06/30/2016 Hepatitis B (Lucstky-X-Hasew , Recombivax HB-Adult) 19yo and older 08/30/2021 [...] Date Site/Laterality Comments OTHER SURGICAL HISTORY PROCEDURE: ND UNLISTED PROCEDURE VESTIBULE MOUTH TONSILLECTOMY 08/01/2020 Bilateral [...] Care Team (Late st Contact Info) Description 05/11/2025 8:30 AM EDT Office Visit Internal Medicine - [address] [place] [address] Cameron Junior MD [address] [place] [address] Health Maintenance Due Date Last Done Comments HIV Screening 01/18/2022 Depression Screening 02/10/2024 COVID-19 Vaccine ( season) 2024 05/20/2020 Influenza Vaccine (#1) 2024 , 12/16/2021, 12/23/2020, Additional history exists Gonorrhea/Chlamydia Screening 02/17/2025 02/18/2024 Social Influencers of Health Screening 05/11/2025 05/11/2024 Cervical Cancer Screening: Pap Smear 02/17/2027 02/18/2024 Cholesterol Screening (Lipid Panel) 05/11/2029 05/11/2024, 09/17/2023, 09/17/2023 DTaP,Tdap,and Td Vaccines (8 - Td or Tdap) 08/31/2031 08/30/2021, 03/24/2011, 04/04/2005, Additional history exists RSV Immunization Adult Patients (1 - 1-dose 75+ series) 01/09/2075 HIB Vaccines Completed 06/30/2001, 08/10, 2000, Additional [...] exam Screen for STD (sexually transmitted disease) HM HEPATITIS C SCREENING Routine 09/17/2023 from Last 3 Months or Most Recently Relevant to Health Maintenance Results * (ABNORMAL) Lipid panel with reflex to direct LDL (05/11/2024 3:33 PM EDT) Cholesterol 218(H) 0 - 200 mg/dL LAB CHEMISTRY METHOD 05/11/2024 7:36 PM EDT [facility] Triglycerides 164(H) 0 - 150 mg/dL LAB CHEMISTRY METHOD 05/11/2024 7:36 PM EDT [facility] HDL 47 >=40 mg/dL LAB CHEMISTRY METHOD 05/11/2024 7:36 PM EDT [facility] LDL Calculated 138(H) 0 - 100 mg/dL LAB CHEMISTRY METHOD 05/11/2024 7:36 PM EDT [facility] VLDL Cholesterol Sly 32.8 mg/dL LAB CHEMISTRY METHOD 05/11/2024 7:36 PM EDT [facility] Non HDL Chol. (LDL+VLDL) 171(H) <145 mg/dL LAB CHEMISTRY METHOD 05/11/2024 7:36 PM EDT [facility] Chol/HDL Ratio 4.6(H) 0.0 - 4.4 LAB CHEMISTRY METHOD 05/11/2024 7:36 PM EDT [facility] Blood Venous blood specimen / Unknown Venipuncture / Unknown 05/11/2024 3:33 PM EDT 05/11/2024 3:33 PM EDT Cameron Junior MD LAB BLOOD ORDERABLES Final Resul t Performing Organization Address City/[facility]/ZIP Co de Phone Number [facility] [address] [place] [address], [place] [phone] * Chlamydia trachomatis and Neisseria gonorrhoeae molecular study (02/18/2024 10:54 AM EST) Neisseria gonorrhoeae PCR Negative Negative LAB MOLECULAR DIAGNOSTICS METHOD 02/19/2024 11:38 AM EST [facility] Chlamydia trachomatis PCR Negative Negative LAB MOLECULAR DIAGNOSTICS METHOD 02/19/2024 11:38 AM EST [facility] Swab Cervix uteri structure / Unknown Non-blood Collection / Unknown 02/18/2024 10:54 AM EST 02/18/2024 4:03 PM EST Vianca Patton CNM LAB MICROBIOLOGY - GENERAL OR DERABLES Final Result Performing Organization Address [facility] de Phone Number [facility] [address] [place] [address], [place] [phone] * Pap smear (02/18/2024 10:54 AM EST) Interpretation Negative for intraepithelial lesion or malignancy 02/23/2024 8:22 AM EST [facility] General Categorization Negative 02/23/2024 8:22 AM EST [facility] LMP 02/04/2024 02/23/2024 8:22 AM EST [facility] Specimen Adequacy Satisfactory for evaluation, endocervical/myers sformation zone component absent 02/23/2024 8:22 AM EST [facility] Pap Methodology Liquid Based Pap Test 02/23/2024 8:22 AM EST [facility] Disclaimer The Pap test is a screening test which carries an inherent false negative rate. These test results should be correlated with the patient's clinical findings and history. This Pap test was processed using an automated screening system. Technical cytopathology services provided by [facility], at [address] [place] [address] (CLIA # [id number]/Sushila Mendoza MD, Felt Dyeing Machine Tender.) 02/23/2024 8:22 AM [facility] Console Pap Interpretation Reported 02/23/2024 8:22 AM [facility] Brushing/Spatula Cervix uteri structure / Unknown 02/18/2024 10:54 AM EST 02/19/2024 6:49 AM EST Vianca Patton [facility] CYTOLOGY ORDERABLES Final Result [facility] [address] [place] [address], * Hepatitis C Screening (09/17/2023) Hepatitis C Screening abstracted Historical Provider HEALTH MAINTENANCE Final Result from Last 3 Months or Most Recently Relevant to Health Maintenance Insurance [facility] Care Teams It Service Technician Relationship Specialty Start Date End Date Cameron Junior MD [address] [place] [phone] PCP - General 06/22/23
[2024-12-08 21:49] VITALS: BP 171/86; PULSE 108; RESP 16; TEMP 37.2; O2SAT 98
== END 2024-12-08 21:50 | disposition home or self-care (01) ==
PROVIDERS: Emergency Provider Emergency Medicine
DX: T14.8XXA Other injury of unspecified body region, initial encounter (principal); V49.9XXA Car occupant (driver) (passenger) injured in unspecified traffic accident, initial encounter; Y93.89 Activity, other specified; Y92.9 Unspecified place or not applicable; Y99.9 Unspecified external cause status
CPT/HCPCS: 70450; 72125; 73522; 99283; 99284

== ENCOUNTER → 2024-12-08 19:33 | Outpatient (BNV) | payer BC, SELFPAY | PROVIDERS: Visit Provider Specialist | DX: T14.90XA Injury, unspecified, initial encounter (principal); V89.2XXA Person injured in unspecified motor-vehicle accident, traffic, initial encounter; M54.2 Cervicalgia; M25.551 Pain in right hip; M25.552 Pain in left hip | CPT/HCPCS: 70450; 72125; 73522 ==

== ENCOUNTER 2025-01-23 19:57 | Emergency (ER) | payer BC, SELFPAY ==
--- NOTE | ~2025-01-23 | XR_ITS ---
CLINICAL HISTORY: chest pain 1 view chest x-ray. Comparison: CR - XR CHEST 2V - 03/21/2024 07:56 PM EST Findings: The lungs appear clear. There is no consolidation, effusion, or pneumothorax. Cardiomediastinal silhouette is within normal limits. IMPRESSION: No acute cardiopulmonary abnormality. This document has been electronically signed by: Ori Chairez MD on 01/23/2025 21:29:15
--- NOTE | 2025-01-23 19:59 | ECG_ITS ---
Test Reason : CHEST PAIN Blood Pressure : */* mmHG Vent. Rate : 133 BPM Atrial Rate : 133 BPM P-R Int : 132 ms QRS Dur : 94 ms QT Int : 328 ms P-R-T Axes : 45 71 26 degrees QTcB Int : 488 ms Sinus tachycardia Otherwise normal ECG When compared with ECG of 26-Dec-2020 14:27, Vent. rate has increased by 51 bpm Referred By: Generic ED Physician Electronically Signed By: Antonio Tian
[2025-01-23 20:08] VITALS: BP 158/94; PULSE 110; RESP 20; TEMP 36.7; O2SAT 99; BMI 33.3
[2025-01-23 20:43] LABS: Hematocrit 42.7 % (37.0-47.0); Hemoglobin 14.1 g/dl (12.0-16.0); Imm Gran Abs Auto 0.01 X10*3/uL (0.00-0.03); Imm Gran Pct Auto 0.1 % (0.0-0.4); Lymphocytes Absolute Auto 2.6 X10*3/uL (1.2-4.9); MANUAL DIFF FLAG NO; Mean Corpuscular HGB Conc 33.0 g/dl (31.0-35.0); Mean Corpuscular Hemoglobin 27.7 pg (27.0-33.0); Mean Corpuscular Volume 83.9 fL (80.0-98.0); NRBC Abs Auto 0.000 X10*3/uL (0.0-0.012); NRBC Pct Auto 0.0 /100WBC (0.0-0.2); Platelet Count 299 X10*3/uL (160-400); Red Blood Count 5.09 X10*6/uL (4.20-5.50); White Blood Count 6.9 X10*3/uL (4.8-10.8)
[2025-01-23 21:04] LABS: Alanine Aminotransferase 53 U/L (0-31); Albumin Level 4.8 g/dL (3.5-5.0); Alkaline Phosphatase 95 U/L (39-117); Anion Gap 13 (12-20); Aspartate Amino Transferase 32 U/L (5-31); Blood Urea Nitrogen 8 mg/dL (9-16); Calcium 9.4 mg/dL (8.4-10.2); Carbon Dioxide 21 mmol/L (22-29); Chloride 108 mmol/L (96-108); Creatinine Clr Calc Pharmacy 138.6; Estimated Glomerular Filt Rate > 60; Potassium 3.5 mmol/L (3.3-5.1); Sodium 138 mmol/L (135-145); Total Protein 8.0 g/dL (6.5-8.0)
[2025-01-23 21:06] LABS: Troponin-I High Sensitivity < 2.7 ng/L (<3.5-17.0)
[2025-01-23 21:22] LABS: Resp Syncy Virus RNA Qual PCR NEGATIVE (Negative); SARS COV2 PCR INHOUSE NEGATIVE (Negative)
--- NOTE | 2025-01-23 21:42 | ED.CHESTPAIN ---
HPI - Chest Pain General Chief Complaint: Chest Pain Stated Complaint: CP Time Seen by Provider: 01/23/25 21:32 Source: patient Limitations: no limitations History of Present Illness ED Provider: Inga Berry PA-C HPI narrative: 25-year-old female with a history of PSVT on PRN beta blockade,Tourette syndrome, presents with left-sided chest pain x3 days. Pain described as a tightness, it is not pleuritic in nature, with the associated shortness of breath with the exertion. patient states she has had recent viral illness but it was minimal. denies new heavy lifting, repetitive activity or fall that could have precipitated chest wall pain. Related Data Home Medications ?Medication ?Instructions ?Recorded ?Confirmed amoxicillin 875 mg tablet 875 mg PO BID 09/20/20 cetirizine 10 mg tablet 10 mg PO DAILY 09/20/20 clonazepam 0.5 mg tablet mg PO 09/20/20 clonidine HCl 0.1 mg tablet 0.1 mg PO TID 09/20/20 fluoride (sodium) 1.1 % dental gel PO 09/20/20 (SF) haloperidol 2 mg tablet 2 mg PO BID 09/20/20 ibuprofen 600 mg tablet 600 mg PO Q6H PRN pain 09/20/20 medroxyprogesterone 150 mg/mL 150 mg IM [id number] 09/20/20 intramuscular suspension methylprednisolone 4 mg tablets in mg PO 09/20/20 a dose pack metronidazole 500 mg tablet 500 mg PO BID 09/20/20 sertraline 100 mg tablet 100 mg PO DAILY 09/20/20 sertraline 25 mg tablet 25 mg PO DAILY 09/20/20 sertraline 50 mg tablet 50 mg PO DAILY 09/20/20 Previous Rx's ?Medication ?Instructions ?Recorded azithromycin 250 mg tablet 250 mg PO DAILY 4 days #4 tabs 03/22/24 (Zithromax) benzonatate 200 mg capsule 200 mg PO TID PRN cough #30 caps 03/22/24 doxycycline hyclate 100 mg tablet 100 mg PO BID #20 tabs 03/22/24 Allergies Allergy/AdvReac Type Severity Reaction Status Date / Time No Known Allergies Allergy Verified 01/23/25 20:12 Review of Systems Review of Systems: Yes all other systems are reviewed and are negative Constitutional: Constitutional: Denies fatigue Cardiovascular: Cardiovascular: Reports chest pain, Reports palpitations and Reports dyspnea Respiratory: Respiratory: Denies chest congestion, Reports cough, Reports dyspnea and Denies wheezing Gastrointestinal: Gastrointestinal: Denies abdominal pain, Denies nausea and Denies vomiting Endocrine: Endocrine: Denies fatigue and Reports palpitations Allergic/Immunologic: Allergic/Immunologic: Denies wheezing [facility] Past Medical History Attestation statement: The following information was validated with the patient. Medical History Tourettes disease Social History Social History Alcohol intake: never Advance Directives: No Advance Directives Information Provided: No Physical Exam Vital Signs: Vital Signs: Last Vital Signs Temp 97.6 F 01/23/25 22:14 Pulse 89 01/23/25 22:14 Resp 18 01/23/25 22:14 BP 134/83 01/23/25 22:14 Pulse Ox 99 01/23/25 22:14 O2 Del Method Room Air 01/23/25 22:14 BMI result Body Mass Index 33.3 Const: Other: Alert well-appearing Orientation/consciousness: patient oriented x3 Resp: Effort & Inspection: normal respiratory effort Cardio: Other: normal peripheral perfusion Skin: Other: warm dry no rash Neuro: General: patient oriented x3, gait normal, no focal motor deficits and CN's II-XI intact bilaterally Psych: Other: cooperative Medical Decision Making Medical Decision Making MDM Narrative: 25-year-old female with a history of PSVT on PRN beta blockade,Tourette syndrome, presents with left-sided chest pain x3 days. Pain described as a tightness, it is not pleuritic in nature, with the associated shortness of breath with the exertion. patient states she has had recent viral illness but it was minimal. denies new heavy lifting, repetitive activity or fall that could have precipitated chest wall pain. problem: Known PSVT History: Per patient I have considered the following differential diagnoses: ACS, PE, chest wall strain, costochondritis, viral syndrome, pneumonia plan: ACS was considered, however the patient has no risk factors for coronary artery disease in her heart score is 0. Screening labs including cardiac enzymes EKG and chest x-ray obtained. She does have some form of underlying infectious symptoms, pneumonia, viral syndrome costochondritis considered, viral panel negative. No pneumonia on chest x-ray. I did considered PE, she is obese, she is tachycardic, although she does have known PSVT. Adding on a dimer. I have independently reviewed the following tests: Labs: no leukocytosis, not anemic, no electrolyte abnormality, troponin less than 2.7, not , viral panel negative, dimer< 150 EKG: Sinus tachycardia, rate of 133, no ischemic changes no ectopy, QTC 488 Chest x-ray Findings: The lungs appear clear. There is no consolidation, effusion, or pneumothorax. Cardiomediastinal silhouette is within normal limits. IMPRESSION: No acute cardiopulmonary abnormality. Differential Diagnosis Differential Diagnoses: The differential diagnosis associated with the presentation includes see [facility] Admission/Observation Consideration of admission/observation: Escalation of care including admission/observation considered Lab Data [facility] Lab Attestation statement: I reviewed the patient's lab results. 01/23/25 20:36 01/23/25 20:36 Labs: Lab Results 01/23/25 01/23/25 Range/Units 20:36 21:51 WBC 6.9 (4.8-10.8) X10*3/uL RBC 5.09 (4.20-5.50) X10*6/uL Hgb 14.1 (12.0-16.0) g/dl Hct 42.7 (37.0-47.0) % MCV 83.9 (80.0-98.0) fL MCH 27.7 (27.0-33.0) pg MCHC 33.0 (31.0-35.0) g/dl RDW 12.3 (11.0-16.0) % Plt Count 299 (160-400) X10*3/uL MPV 9.2 L (9.4-12.3) fL Immature Gran % (Auto) 0.1 (0.0-0.4) % Neut % (Auto) 50.4 (45-73) % Lymph % (Auto) 37.5 (20-40) % [place] % (Auto) 9.0 (2-11) % Eos % (Auto) 2.3 (0-4) % Baso % (Auto) 0.7 (0-2) % Lymph # (Auto) 2.6 (1.2-4.9) X10*3/uL [place] # (Auto) 0.6 (0.1-1.2) X10*3/uL Eos # (Auto) 0.2 (0.0-0.4) X10*3/uL Baso # (Auto) 0.1 (0.0-0.2) X10*3/uL Abs Immat Gran (auto) 0.01 (0.00-0.03) X10*3/uL Absolute Neuts (auto) 3.5 (2.0-8.3) x10*3/uL Absolute Nucleated RBC 0.000 (0.0-0.012) X10*3/uL Nucleated RBC % (auto) 0.0 (0.0-0.2) /100WBC D-Dimer High Sensitivty < 150 NG/ML Sodium 138 (135-145) mmol/L Potassium 3.5 (3.3-5.1) mmol/L Chloride 108 (96-108) mmol/L Carbon Dioxide 21 L (22-29) mmol/L Anion Gap 13 (12-20) BUN 8 L (9-16) mg/dL Creatinine 0.69 (0.5-1.4) mg/dL Estim Creat Clear Calc 138.6 Estimated GFR > 60 Random Glucose 78 (60-115) mg/dL Calcium 9.4 (8.4-10.2) mg/dL Total Bilirubin 0.5 (0.0-1.0) mg/dL AST 32 H (5-31) U/L ALT 53 H (0-31) U/L Alkaline Phosphatase 95 (39-117) U/L Troponin I High Sens < 2.7 (<3.5-17.0) ng/L Total Protein 8.0 (6.5-8.0) g/dL Albumin 4.8 (3.5-5.0) g/dL Beta HCG, Quant < 2 mIU/mL Influenza Type A (PCR) NEGATIVE (Negative) Influenza Type B (PCR) NEGATIVE (Negative) RSV RNA Qual (PCR) NEGATIVE (Negative) SARS-CoV-2 RNA (RT-PCR) NEGATIVE (Negative) Independent Interpretation I performed an independent interpretation of an: EKG Radiology Impression Discussion of test interpretation with radiology: I have reviewed the radiologist's reading. Discharge Plan Discharge Clinical Impression: Chest wall pain Patient Disposition: Home, Self-Care Instructions: Chest Wall Pain (ED) Additional Instructions: all of your screening labs including a cardiac enzymes were normal. A viral panel was obtained, you were tested for influenza COVID and RSV, it was negative.There were no concerning changes on the EKG beyond your known tachycardia, in the chest x-ray is clear. You can try [id number] ibuprofen 600 mg taken every 6 hours with food for your chest wall pain. Follow up with your primary care as needed. Prescriptions: No Action doxycycline hyclate 100 mg tablet 100 mg PO BID Qty: 20 0RF azithromycin [Zithromax] 250 mg tablet 250 mg PO DAILY 4 Days Qty: 4 0RF Rx Instructions: start on day 2 of therapy benzonatate 200 mg capsule 200 mg PO TID PRN (Reason: cough) Qty: 30 0RF medroxyprogesterone 150 mg/mL suspension 150 mg IM [id number] metronidazole 500 mg tablet 500 mg PO BID sertraline 100 mg tablet 100 mg PO DAILY sertraline 50 mg tablet 50 mg PO DAILY haloperidol 2 mg tablet 2 mg PO BID methylprednisolone 4 mg tablets,dose pack PO sertraline 25 mg tablet 25 mg PO DAILY cetirizine 10 mg tablet 10 mg PO DAILY ibuprofen 600 mg tablet 600 mg PO Q6H PRN (Reason: pain) amoxicillin 875 mg tablet 875 mg PO BID clonazepam 0.5 mg tablet PO fluoride (sodium) [SF] 1.1 % gel PO clonidine HCl 0.1 mg tablet 0.1 mg PO TID Stand Alone Forms: Work/School Release Print Language: Italian
[2025-01-23 22:06] LABS: D Dimer High Sensitivity < 150 NG/ML
[2025-01-23 22:14] VITALS: BP 134/83; PULSE 89; RESP 18; TEMP 36.4; O2SAT 99
[2025-01-23 22:38] VITALS: BP 134/83; PULSE 89; RESP 18; TEMP 36.4; O2SAT 99
--- OUTSIDE RECORDS SUMMARY | 2025-01-23 22:53 | XMS_ITS | Clinical Summary ---
Author Organization [facility] Address [address] [place] [address] Care Team Providers Care Contract Driver Name Role Phone No, Pcp [employer]OX [employer] Primary Care Provider Unavailabl e Social History Tobacco Use Types Packs/Day Years Used Date Smoking Tobacco: Never Assessed Comments Unknown Sex and Gender Information Value Date Recorded Sex Assigned at Not on file Legal Sex Female 4:32 PM EST Gender Identity Not on file Sexual Orientation Not on file Plan of Treatment Not on file Medical Devices [place] [id number] [facility] 2-[employer] PLAN Care Teams Contract Driver Relationship Specialty Start Date End Date No, Pcp, METAL [employer]OX [employer]ER N/A Do not use PCP - General Family Medicine 02/20/20
--- OUTSIDE RECORDS SUMMARY | 2025-01-23 22:53 | XMS_ITS | Clinical Summary ---
Author Organization [facility] Address [address] [place] [address] Phone Care Team Providers Care Sprinkler Worker Name Role Phone Cameron Junior MD Primary Care Provider [phone] Allergies Active Allergy Reactions Criticality Noted Date Comments Metronidazole Palpitations High 10/25/2020 Prednisone Flushing,Itching,Rash 06/11/2021 After 2 days Medications albuterol sulfate (ProAir RespiClick) 90 mcg/actuation aerosol powdr breath activated Inhale 2 Puffs into the lungs every 4 hours as needed (wheezing, shortness of breath). 2 Active metoprolol tartrate (LOPRESSOR) 25 mg tablet Take 25 mg by mouth 2 times daily. Prn per melting operator dr Flores Active spironolactone (ALDACTONE) 50 mg tablet Take 1 tablet (50 mg total) by mouth 1 (one) time each day. 5 Active Active Problems Problem Noted Date Diagnosed [...] She will continue have follow-up with her dry talc racker and primary care physician. I have not scheduled a routine clinical follow-up at this time and I am happy to see her on as-needed basis. Tachycardia 03/25/2021 Hyperthyroidism 01/24/2021 Tourette syndrome 10/28/2019 Overview (12/31/2023): Per neuro 11/2019 Resolved Problems Problem Noted Date Diagnosed Date Resolved Date Tonsillar hypertrophy 07/18/20202024 Overview (12/31/2023): Dr Garcia Anxiety 12/22/2019 06/14/2024 Immunizations Immunization Administration Dates Next Due DTaP (Infanrix) 6wks to less than 7yo ,03/01/2002,2000,07/14,2000 [id number] (Pentacel) 2mo to less than 5yo 06/30/2001,2000,2000,03/23 HPV 9-valent (Gardisil) 9yo to less than 46yo 06/30/2016 HPV, Quadrivalent 12/01/2013 Hepatitis A Adult (Havrix; V aqta) 19yo and older 12/01/2013 Hepatitis A Pediatric (Havri x; Vaqta) 12mo to less than 19yo 06/30/2016 Hepatitis B (Lzdfzyu-W-Nxsue , Recombivax HB-Adult) 19yo and older 08/30/2021 [...] Pneumococcal Conjugate Vacci ne, 7 Valent 03/23/2003,2000,2000,03/23 Tdap Tetanus diptheria acell ular pertussis (Boostrix; Adacel) 7yo and older 08/30/2021,03/24/2011 Varicella live (Varivax) 12m o and older 08/30/2021,06/26/2008,06/30/2001 Surgical History Surgery Date Site/Laterality Comments OTHER SURGICAL HISTORY PROCEDURE: DC UNLISTED PROCEDURE VESTIBULE MOUTH TONSILLECTOMY 08/01/2020 Bilateral PROCEDURE: HISTORICAL TONSILLECTOMY; COMMENT: Dr. aGrcia Medical History Medical History Date Comments Tonsillar [...] Care Team (Late st Contact Info) Description 02/03/2025 9:30 AM EST Office Visit Internal Medicine - [place] [address] [address] Ronn Galan NP [address] [address] 05/11/2025 8:30 AM EDT Office Visit Internal Medicine [facility] [address] [phone] Cameron Junior MD [address] [place] [address] Health Maintenance Due Date Last Done Comments HIV Screening 01/18/2022 Depression Screening 02/10/2024 COVID-19 Vaccine ( season) 2024 05/20/2020 Influenza Vaccine (#1) 2024 , 12/16/2021, 12/23/2020, Additional history exists Social Influencers of Health Screening 05/11/2025 05/11/2024 [...] 06/26/2008, 06/30/2001 Hepatitis C Screening Completed 09/17/2023 Gonorrhea/Chlamydia Screening Discontinued 02/18/2024 Meningococcal B Vaccine Aged Out No l [...] LAB CHEMISTRY METHOD 05/11/2024 7:36 PM EDT [facility] Triglycerides 164(H) 0 - 150 mg/dL LAB CHEMISTRY METHOD 05/11/2024 7:36 PM EDT [facility] HDL 47 >=40 mg/dL LAB CHEMISTRY METHOD 05/11/2024 7:36 PM EDT [facility] LDL Calculated 138(H) 0 - 100 mg/dL LAB CHEMISTRY METHOD 05/11/2024 7:36 PM EDT [facility] VLDL Cholesterol Sly 32.8 mg/dL LAB CHEMISTRY METHOD 05/11/2024 7:36 PM EDT [facility] Non HDL Chol. (LDL+VLDL) 171(H) <145 mg/dL LAB CHEMISTRY METHOD 05/11/2024 7:36 PM EDT [facility] Chol/HDL Ratio 4.6(H) 0.0 - 4.4 LAB CHEMISTRY METHOD 05/11/2024 7:36 PM EDT [facility] Blood Venous blood specimen / Unknown Venipuncture / Unknown 05/11/2024 3:33 PM EDT 05/11/2024 3:33 PM EDT Cameron Junior MD LAB BLOOD ORDERABLES Final Resul t Performing Organization Address City/[facility]/ZIP Co de Phone Number [facility] [address] [place] [address], [place] [phone] * Chlamydia trachomatis and Neisseria gonorrhoeae molecular study (02/18/2024 10:54 AM EST) Neisseria gonorrhoeae PCR Negative Negative LAB MOLECULAR DIAGNOSTICS METHOD 02/19/2024 11:38 AM EST [facility] Chlamydia trachomatis PCR Negative Negative LAB MOLECULAR DIAGNOSTICS METHOD 02/19/2024 11:38 AM EST [facility] Swab Cervix uteri structure / Unknown Non-blood Collection / Unknown 02/18/2024 10:54 AM EST 02/18/2024 4:03 PM EST Vianca Patton CNM LAB MICROBIOLOGY - GENERAL OR DERABLES Final Result Performing Organization Address [facility] Co de Phone Number [facility] [address] [place] [address], [place] [phone] * Pap smear (02/18/2024 10:54 AM EST) Interpretation Negative for intraepithelial lesion or malignancy 02/23/2024 8:22 AM EST [facility] at 0822 EST General Categorization Negative 02/23/2024 8:22 AM EST [facility] LMP 02/04/2024 02/23/2024 8:22 AM EST [facility] Specimen Adequacy Satisfactory for evaluation, endocervical/myers sformation zone component absent 02/23/2024 8:22 AM EST [facility] Pap Methodology Liquid Based Pap Test 02/23/2024 8:22 AM EST [facility] Disclaimer The Pap test is a screening test which carries an inherent false negative rate. These test results should be correlated with the patient's clinical findings and history. This Pap test was processed using an automated screening system. Technical cytopathology services provided by [facility], at [address] [place] [address] (CLIA # [id number]/Sushila Mendoza MD, Research Intern.) 02/23/2024 8:22 AM [facility] Console Pap Interpretation Reported 02/23/2024 8:22 AM [facility] Brushing/Spatula Cervix uteri structure / Unknown 02/18/2024 10:54 AM EST 02/19/2024 6:49 AM EST Vianca Patton [facility] CYTOLOGY ORDERABLES Final Result [facility] [address] [place] [address], * Hepatitis C Screening (09/17/2023) Hepatitis C Screening abstracted Historical Provider HEALTH MAINTENANCE Final Result from Last 3 Months or Most Recently Relevant to Health Maintenance Insurance [employer] Care Teams Sprinkler Worker Relationship Specialty Start Date End Date Cameron Junior MD [address] [place] [phone] PCP - General 06/22/23
--- OUTSIDE RECORDS SUMMARY | 2025-01-23 22:54 | XMS_ITS | Encounter Summary ---
Author Organization [facility] Address [address] [place] [phone] Phone Care Team Providers Care Apartment Groundskeeper Name Role Phone Felipe Cordero MD Primary Care Provider Encounter Details Date Type Department Care Team (Late st Contact Info) Description 09/25/2016 Conversion Encounter [facility] - [address] [address] Social History Tobacco Use Types Packs/Day Years [...] on filedocumented in this encounter Care Teams Apartment Groundskeeper Relationship Specialty Start Date End Date Felipe Cordero MD [facility] [facility] [place] [address] PCP - General Pediatrics 12/01/17 documented as of this encounter
--- OUTSIDE RECORDS SUMMARY | 2025-01-23 22:54 | XMS_ITS | Clinical Summary ---
Author Organization [facility] Address [address] [place] [address] Phone Care Team Providers Care Gas Meter Checker Name Role Phone Felipe Cordero MD Primary [...] Elevated cholesterol, No family history of Sudden /GA under age 55, No family history of [...] age to complete this topic Care Teams Gas Meter Checker Relationship Specialty Start Date End Date Felipe Cordero MD [address] [place] [address] [place] [address] PCP - General Pediatrics 12/01/17
--- OUTSIDE RECORDS SUMMARY | 2025-01-23 22:54 | XMS_ITS | Clinical Summary ---
Author Organization [facility] Address [address] [facility] [address] [place] [address] Phone Care Team Providers Care Commissioner Of Internal Revenue Name Role Phone Bassem Iniguez MD Primary [...] SMOKING Hx and SMOKELESS TOBACCO SCREENING 01/09/2013 HPV VACCINES (2 - 3-dose series) 07/28/2016 [...] topic Medical Devices Not on file Insurance [facility] [place] [address] [place] [address] [facility]CO [facility] ALLANCE [employer] Care Teams Commissioner Of Internal Revenue Relationship Specialty Start Date End Date Bassem Iniguez MD PCP - General Family Medicine 03/25/21 Additional Source Comments The information contained in this document represents components of the legal health record. It is not the complete legal health record.[facility]
== END 2025-01-23 22:38 | disposition home or self-care (01) ==
PROVIDERS: Physician Assistant Medical; Emergency Provider Emergency Medicine; PCP Student in an Organized Health Care Education/Training Program
DX: R07.89 Other chest pain (principal); R00.2 Palpitations; R06.09 Other forms of dyspnea; Z03.818 Encounter for observation for suspected exposure to other biological agents ruled out
CPT/HCPCS: 36415; 71045; 80053; 84484; 84702; 85025; 85379; 87637; 93005; 99283; 99285

== ENCOUNTER → 2025-01-23 19:59 | Outpatient (BNV) | payer BC, SELFPAY | PROVIDERS: Emergency Provider Emergency Medicine; PCP Student in an Organized Health Care Education/Training Program; Visit Provider Internal Medicine Cardiovascular Disease | DX: R00.0 Tachycardia, unspecified (principal) | CPT/HCPCS: 93010 ==

== ENCOUNTER → 2025-01-23 20:43 | Outpatient (BNV) | payer BC, SELFPAY | PROVIDERS: Emergency Provider Emergency Medicine; PCP Student in an Organized Health Care Education/Training Program; Visit Provider Radiology Diagnostic Radiology | DX: R07.9 Chest pain, unspecified (principal) | CPT/HCPCS: 71045 ==